=== PATIENT | female | born 1960 | race Caucasian/White ===

== ENCOUNTER 2019-11-21 10:52 | Inpatient (IN) | payer MEDICARE, OTHER ==
[2019-11-27 20:15] VITALS: BP 132/67
[2019-11-27] MEDS ORDERED: Magnesium Hydroxide (MOM) 30 mL UDC PO PRN (20:36)
[2019-11-28] MEDS ORDERED: OLANZapine 5 mg Oral Disintegrating Tab PO SCH (05:00)
[2019-11-28] MEDS ORDERED: INSULIN LISPRO 100 UNIT/ML VIAL SUBQ SCH (07:30)
--- NOTE | 2019-11-28 07:37 | Psychiatric Evaluation ---
DATE OF SERVICE: 11/28/2019 PSYCHIATRIC INITIAL EVALUATION AND MENTAL STATUS EXAMINATION AGE: 59. SEX: Female. PHYSICIAN: Dr. Aquino. CHIEF COMPLAINT: "I don't talk to any senior rd engineer right now." HISTORY OF PRESENT ILLNESS: The patient is a 59-year-old female who was admitted to the hospital from [facility] in the [facility] because the patient has been aggressive and has been hitting staff. The patient also has been verbally abusive and has not been able to follow any of staff directions. Upon arrival to the hospital, the patient has been extremely agitated and has been in angry and in irritable mood. The patient also has been restless and has been paranoid about the surrounding and has been yelling and screaming at staff and nurses in the unit. She also was angry and agitated with myself and she was yelling and screaming at me and thinking that I am a senior rd engineer and asked me to leave and that she does not want to talk to a senior rd engineer at this time in spite of multiple attempts to explain to her my role and that I am her psychiatrist. She also is having difficulty to follow any directions and she kept yelling and screaming. PAST PSYCHIATRIC HISTORY: The patient has history of schizoaffective disorder. The patient has been taking Zyprexa, but it seemed that it has not been helping the patient's agitation and has not been helping her irritability. PAST MEDICAL HISTORY: The patient has a history of type 2 diabetes mellitus as well as arthritis and has cellulitis of right lower limb and also has a muscle weakness. The patient also has history of alcohol abuse. ALLERGIES: No known allergies. SOCIAL HISTORY: The patient lives in [facility]. No known family or children or marriage. Unemployed. The patient was homeless prior to her admission to [facility]. Also no reports of abuse issues. ALLERGIES: No known allergies. LEGAL HISTORY: Nothing reported. EMPLOYMENT: Nothing reported. CHEMICAL DEPENDENCY HISTORY: The patient has history of alcohol abuse. It is not clear when was the last time she was drinking. MENTAL STATUS EXAMINATION: The patient appears much older than her stated age. Disheveled. Anxious. Restless. In irritable mood. Thought processes are circumstantial and with flight of ideas. The patient did not answer question regarding hallucinations or delusions, but actively responding to stimuli. Poor insight and she does not know why she is in the hospital. Poor judgment and she was refusing care and aggressive with the staff in the alf and also aggressive in the Geropsych Unit. The patient did not answer question regarding suicide or homicide. The patient is alert, but unable to assess her orientation or memory at this time because of her agitation and aggressive behavior and uncooperative to answer any of the questions. Poor judgment. Poor attention and concentration. She was not able to follow any of my directions when I asked her about the spelling a word or spelling of her last name. ASSESSMENT: PRIMARY DIAGNOSIS: Schizoaffective disorder, schizophrenic type, severe, with psychosis. MEDICAL DIAGNOSES: Diabetes mellitus. Arthritis. Right lower limb cellulitis. TREATMENT PLAN: We will continue to monitor the patient's behavior and condition closely. Also, we will discontinue Zyprexa and we will start the patient on Seroquel 100 mg 3 times a day. Also, we will monitor her behavior and work on behavioral modification. ESTIMATED LENGTH OF STAY: 5-7 days. PATIENT'S STRENGTHS AND WEAKNESSES: The patient seems to be in relatively fair health. Weaknesses are her poor judgment. AFTER DISCHARGE PLAN: The patient will return to [facility] unless placement will be indicated. Outpatient treatment and followup will continue as an outpatient. CRITERIA FOR DISCHARGE: The patient will have better impulse control and less agitated and stabilize psychotropic medications and establish outpatient treatment plans. JOB# [id number]
[2019-11-28] MEDS: Multivitamin Tab PO SCH (09:00)
[2019-11-28] MEDS: Enoxaparin 40 mg/0.4 mL 0.4mL Syr SUBQ SCH (10:00)
[2019-11-28] MEDS ORDERED: GLUCAGON HCl 1 MG KIT IM PRN (11:55)
--- NOTE | 2019-11-28 12:22 | History & Physical ---
ADMIT DATE: 11/28/19 CHIEF COMPLAINT: Redness and swelling. HISTORY OF PRESENT ILLNESS: The patient is an elderly patient who lives in [facility] who is transferred here for continuing management of treatment of cellulitis. The patient does not have any pain in her leg. The patient denies any chest pain or shortness of breath, nausea, vomiting, abdominal pain. PAST MEDICAL HISTORY: 1. Diabetes. 2. Schizoaffective disorder. 3. Schizophrenia. SURGICAL HISTORY: None. MEDICATIONS: List reviewed. ALLERGIES: None. SOCIAL HISTORY: Tobacco, IV drugs, ETOH negative. PHYSICAL EXAMINATION: VITAL SIGNS: Temperature is 97.7, pulse 80, respirations 18, blood pressure is 132/67. HEENT: Normocephalic, atraumatic head exam. NECK: Supple. CARDIOVASCULAR: Regular rate and rhythm. LUNGS: Clear. ABDOMEN: Soft, nontender. EXTREMITIES: No edema, cyanosis or clubbing. There is erythema of the leg consistent with cellulitis. ASSESSMENT AND PLAN: 1. Diabetic cellulitis. 2. Schizoaffective disorder. The patient has already received the antibiotics. We will continue to do daily wound checks, and we will monitor the blood sugar and blood pressure closely. JOB# [id number] FIDENCIO
[2019-11-28] MEDS: Venelex 60gm Tube TP SCH (13:30)
[2019-11-28] MEDS: INSULIN LISPRO SLIDING SCALE 100 UNITS/ML UNIT SUBQ SCH ×2 (16:24→20:52)
[2019-11-29] MEDS: INSULIN LISPRO SLIDING SCALE 100 UNITS/ML UNIT SUBQ SCH ×4 (06:30→21:17)
[2019-11-29] MEDS: Enoxaparin 40 mg/0.4 mL 0.4mL Syr SUBQ SCH (08:27)
[2019-11-29] MEDS: Multivitamin Tab PO SCH (08:28)
[2019-11-29] MEDS: Venelex 60gm Tube TP SCH (08:30)
[2019-11-29] MEDS: Hydrocodone/APAP 5mg/325mg Tab PO PRN ×2 (09:05→17:01)
--- NOTE | 2019-11-29 09:48 | Progress Notes ---
DATE: SUBJECTIVE: Chart was reviewed and the patient interviewed. Also discussed the patient's condition with the staff and reviewed records and labs. The patient continued to be anxious and slightly confused. The patient is still slightly confused and needs redirections. She is cooperative and compliant with taking her medications. No side effects of medications. ASSESSMENT: The patient is still anxious and is still in a depressed mood and is having episodes of agitation. TREATMENT PLAN: We will continue monitoring her behavior and her medications. Also, continue working on her impulse control and her agitation and we will continue to followup. ESTIMATED LENGTH OF STAY: 2-4 days. REASON FOR CONTINUED HOSPITAL STAY: The patient is still agitated and needs working on her impulse control. JOB# [id number]
--- NOTE | 2019-11-29 14:15 | Internal Medicine Prog Note ---
Internal Medicine Subjective - Subjective Service Date: 11/29/19 Patient seen and examined:: without staff Patient is:: awake, verbal Patient Complaints of:: sore throat Per staff patient has:: eating well Internal Medicine Objective - Results Recent Labs: Laboratory Last Values POC Glucose 86 MG/DL (70 - 105) 11/29/19 06:24 - Physical Exam Vitals and I&O: Vital Signs Temp 98.4 F 11/29/19 05:27 Pulse 62 11/29/19 05:27 Resp 20 11/29/19 05:27 BP 117/73 11/29/19 05:27 Pulse Ox 98 11/29/19 05:27 Intake & Output 11/28/19 11/29/19 11/29/19 18:59 06:59 18:59 Intake Total 1020 240 Balance 1020 240 Intake: Oral 1020 240 Other: # Voids 3 2 # Bowel Movements 1 0 Active Medications: Current Medications Hydrocodone Bitart/Acetaminophen ([place] 5mg/325mg) 1 tab PO Q6H PRN PRN Reason: SEVERE PAIN (7-10) Stop: 01/27/20 02:40 Last Admin: 11/29/19 09:05 Dose: 1 tab [place] Oil/Sudanese Balsam/Trypsin (Venelex) 1 appl TP Q24HR BUTCH Stop: 01/27/20 08:59 Last Admin: 11/29/19 08:30 Dose: 1 appl Dextrose (Glutose 40%) 18.75 gm PO PRN PRN PRN Reason: BS Below 70 if tolerate po Stop: 01/27/20 11:54 Enoxaparin Sodium (Lovenox) 40 mg SUBQ DAILY [facility] Stop: 01/27/20 08:59 Last Admin: 11/29/19 08:27 Dose: 40 mg Glucagon (Glucagen) 1 mg IM PRN PRN PRN Reason: BS Below 70 if not tolerate po Stop: 01/27/20 11:54 Insulin Human Lispro (Humalog Insulin Sliding Scale) 0 units SUBQ ACHS BUTCH; Protocol Stop: 01/27/20 16:29 Last Admin: 11/29/19 11:40 Dose: Not Given Lorazepam (Ativan) 0.5 mg PO Q4HR PRN; Protocol PRN Reason: Anxiety Stop: 12/27/19 20:35 Last Admin: 11/28/19 20:53 Dose: 0.5 mg Magnesium Hydroxide (Milk Of Magnesia) 30 ml PO HS PRN PRN Reason: Constipation Metformin HCl (Glucophage) 500 mg PO DAILY [facility] Stop: 01/27/20 08:59 Last Admin: 11/29/19 08:28 Dose: 500 mg Multivitamins/Vitamin C (Theragran) 1 tab PO DAILY BUTCH Stop: 01/27/20 08:59 Last Admin: 11/29/19 08:28 Dose: 1 tab Mupirocin (Bactroban Oint) 1 appl NS BID [facility] Stop: 12/04/19 09:01 Quetiapine Fumarate (Seroquel) 100 mg PO TID [facility]; Protocol Stop: 01/27/20 08:59 Last Admin: 11/29/19 08:28 Dose: 100 mg Zolpidem Tartrate (Ambien) 5 mg PO HS PRN PRN Reason: Insomnia Stop: 01/26/20 20:35 HEENT: NC/AT, EOMI Neck: Supple, No JVD Lungs: CTAB Cardiovascular: RRR, Normal S1, Normal S2 Abdomen: soft, non-tender Extremities: clear Internal Medicine Assmt/Plan - Assessment Assessment: 1. Cellutis 2. Acute psychosis 3. DM/HTN - Plan Plan: will montor wound
[2019-11-30] MEDS: INSULIN LISPRO SLIDING SCALE 100 UNITS/ML UNIT SUBQ SCH ×4 (06:32→21:12)
[2019-11-30] MEDS: Enoxaparin 40 mg/0.4 mL 0.4mL Syr SUBQ SCH (08:25)
[2019-11-30] MEDS: Multivitamin Tab PO SCH (08:25)
[2019-11-30] MEDS: Venelex 60gm Tube TP SCH (08:27)
[2019-11-30] MEDS: Hydrocodone/APAP 5mg/325mg Tab PO PRN (08:47)
[2019-11-30] MEDS ORDERED: Haloperidol Lactate 5 mg/mL 1mL Vial ONE (10:49)
[2019-11-30] MEDS: Haloperidol Lactate 5 mg/mL 1mL Vial IM ONE ×2 (11:11→11:13)
--- NOTE | 2019-11-30 13:18 | Internal Medicine Prog Note ---
Internal Medicine Subjective - Subjective Service Date: 11/30/19 Patient seen and examined:: without staff Patient is:: asleep, non-verbal, non-interactive, eyes closed Internal Medicine Objective - Results Recent Labs: Laboratory Last Values POC Glucose 143 MG/DL (70 - 105) H 11/29/19 21:14 - Physical Exam Vitals and I&O: Vital Signs Temp 97.4 F 11/30/19 05:45 Pulse 66 11/30/19 05:45 Resp 18 11/30/19 07:33 BP 126/68 11/30/19 05:45 Pulse Ox 99 11/30/19 05:45 Intake & Output 11/29/19 11/30/19 11/30/19 18:59 06:59 18:59 Intake Total 900 160 Balance 900 160 Intake: Oral 900 160 Other: # Voids 3 2 # Bowel Movements 1 1 Active Medications: Current Medications Hydrocodone Bitart/Acetaminophen ([place] 5mg/325mg) 1 tab PO Q6H PRN PRN Reason: SEVERE PAIN (7-10) Stop: 01/27/20 02:40 Last Admin: 11/30/19 08:47 Dose: 1 tab [place] Oil/Surinamese Balsam/Trypsin (Venelex) 1 appl TP Q24HR BUTCH Stop: 01/27/20 08:59 Last Admin: 11/30/19 08:27 Dose: 1 appl Dextrose (Glutose 40%) 18.75 gm PO PRN PRN PRN Reason: BS Below 70 if tolerate po Stop: 01/27/20 11:54 Enoxaparin Sodium (Lovenox) 40 mg SUBQ DAILY [facility] Stop: 01/27/20 08:59 Last Admin: 11/30/19 08:25 Dose: 40 mg Glucagon (Glucagen) 1 mg IM PRN PRN PRN Reason: BS Below 70 if not tolerate po Stop: 01/27/20 11:54 Insulin Human Lispro (Humalog Insulin Sliding Scale) 0 units SUBQ ACHS BUTCH; Protocol Stop: 01/27/20 16:29 Last Admin: 11/30/19 11:33 Dose: Not Given Lorazepam (Ativan) 0.5 mg PO Q4HR PRN; Protocol PRN Reason: Anxiety Stop: 12/27/19 20:35 Last Admin: 11/28/19 20:53 Dose: 0.5 mg Magnesium Hydroxide (Milk Of Magnesia) 30 ml PO HS PRN PRN Reason: Constipation Metformin HCl (Glucophage) 500 mg PO DAILY BUT[facility] Stop: 01/27/20 08:59 Last Admin: 11/30/19 08:25 Dose: 500 mg Multivitamins/Vitamin C (Theragran) 1 tab PO DAILY BUT[facility] Stop: 01/27/20 08:59 Last Admin: 11/30/19 08:25 Dose: 1 tab Mupirocin (Bactroban Oint) 1 appl NS BID BUTCH Stop: 12/04/19 09:01 Last Admin: 11/30/19 08:27 Dose: 1 appl Quetiapine Fumarate (Seroquel) 100 mg PO TID [facility]; Protocol Stop: 01/27/20 08:59 Last Admin: 11/30/19 08:25 Dose: 100 mg Zolpidem Tartrate (Ambien) 5 mg PO HS PRN PRN Reason: Insomnia Stop: 01/26/20 20:35 Last Admin: 11/29/19 21:17 Dose: 5 mg HEENT: NC/AT, EOMI Neck: Supple, No JVD Lungs: CTAB Cardiovascular: RRR, Normal S1, Normal S2 Abdomen: soft, non-tender Extremities: other (erythema over leg) Internal Medicine Assmt/Plan - Assessment Assessment: 1. Cellutis 2. Acute psychosis 3. DM/HTN - Plan Plan: will montor wound continue accu check of blood sugars wound care consult with homer hopefully wound will heal soon d/w r.n. patient is in isolation for aggressive behavior
--- NOTE | 2019-11-30 13:40 | General Progress Note ---
Subjective - Review of Systems Service Date: 11/30/19 Objective - Results Recent Labs: Laboratory Last Values POC Glucose 143 MG/DL (70 - 105) H 11/29/19 21:14 - Physical Exam Vitals and I&O: Vital Signs Temp 97.4 F 11/30/19 05:45 Pulse 66 11/30/19 05:45 Resp 18 11/30/19 07:33 BP 126/68 11/30/19 05:45 Pulse Ox 99 11/30/19 05:45 Intake & Output 11/29/19 11/30/19 11/30/19 18:59 06:59 18:59 Intake Total 900 160 Balance 900 160 Intake: Oral 900 160 Other: # Voids 3 2 # Bowel Movements 1 1 Active Medications: Current Medications Hydrocodone Bitart/Acetaminophen ([place] 5mg/325mg) 1 tab PO Q6H PRN PRN Reason: SEVERE PAIN (7-10) Stop: 01/27/20 02:40 Last Admin: 11/30/19 08:47 Dose: 1 tab [place] Oil/Irish Balsam/Trypsin (Venelex) 1 appl TP Q24HR BUT[facility] Stop: 01/27/20 08:59 Last Admin: 11/30/19 08:27 Dose: 1 appl Dextrose (Glutose 40%) 18.75 gm PO PRN PRN PRN Reason: BS Below 70 if tolerate po Stop: 01/27/20 11:54 Enoxaparin Sodium (Lovenox) 40 mg SUBQ DAILY BUT[facility] Stop: 01/27/20 08:59 Last Admin: 11/30/19 08:25 Dose: 40 mg Glucagon (Glucagen) 1 mg IM PRN PRN PRN Reason: BS Below 70 if not tolerate po Stop: 01/27/20 11:54 Insulin Human Lispro (Humalog Insulin Sliding Scale) 0 units SUBQ ACHS BUTCH; Protocol Stop: 01/27/20 16:29 Last Admin: 11/30/19 11:33 Dose: Not Given Lorazepam (Ativan) 0.5 mg PO Q4HR PRN; Protocol PRN Reason: Anxiety Stop: 12/27/19 20:35 Last Admin: 11/28/19 20:53 Dose: 0.5 mg Magnesium Hydroxide (Milk Of Magnesia) 30 ml PO HS PRN PRN Reason: Constipation Metformin HCl (Glucophage) 500 mg PO DAILY [facility] Stop: 01/27/20 08:59 Last Admin: 11/30/19 08:25 Dose: 500 mg Multivitamins/Vitamin C (Theragran) 1 tab PO DAILY [facility] Stop: 01/27/20 08:59 Last Admin: 11/30/19 08:25 Dose: 1 tab Mupirocin (Bactroban Oint) 1 appl NS BID [facility] Stop: 12/04/19 09:01 Last Admin: 11/30/19 08:27 Dose: 1 appl Quetiapine Fumarate (Seroquel) 100 mg PO TID [facility]; Protocol Stop: 01/27/20 08:59 Last Admin: 11/30/19 08:25 Dose: 100 mg Zolpidem Tartrate (Ambien) 5 mg PO HS PRN PRN Reason: Insomnia Stop: 01/26/20 20:35 Last Admin: 11/29/19 21:17 Dose: 5 mg Assessment/Plan - Assessment Assessment: 1. Cellutis 2. Acute psychosis 3. DM/HTN - Plan Plan: will montor wound
--- NOTE | 2019-11-30 22:56 | Progress Notes ---
DATE: 11/30/2019 SUBJECTIVE: The patient was interviewed. Case was discussed with staff, and chart and records were reviewed. Per the staff, the patient has been in the room most of the day, talking and cursing out loud. The patient has been aggressively agitated, cursing and throwing things and yelling. The patient was earlier agitated this morning and required Haldol 5 mg, Ativan 1 mg, Benadryl 25 mg IM due to emergent agitation and safety reasons. MENTAL STATUS EXAMINATION: The patient is an elderly female, disorganized, uncooperative with poor insight, judgment and impulse control. Otherwise, unable to assess due to poor cooperation. ASSESSMENT: The patient is a 59-year-old female, admitted to [facility] originally on 11/27/2019 from [facility] due to becoming aggressive and hitting staff. The patient at this time continues with aggressive behavior, continues to require emergent medications via IM route due to aggressive and threatening behavior and poor boundaries and poor safety. PLAN: We will continue the patient on acute hospitalization. We will continue medications as prescribed. We will encourage the patient to verbalize the need, encourage the patient to participate in group and milieu therapy. JOB# [id number]
[2019-12-01] MEDS: INSULIN LISPRO SLIDING SCALE 100 UNITS/ML UNIT SUBQ SCH ×4 (07:12→21:13)
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
[2019-12-01] MEDS: Enoxaparin 40 mg/0.4 mL 0.4mL Syr SUBQ SCH (08:35)
[2019-12-01] MEDS: Venelex 60gm Tube TP SCH (08:36)
[2019-12-01] MEDS: Multivitamin Tab PO SCH (08:36)
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
[2019-12-02] MEDS: INSULIN LISPRO SLIDING SCALE 100 UNITS/ML UNIT SUBQ SCH ×4 (06:45→20:44)
[2019-12-02] MEDS: Enoxaparin 40 mg/0.4 mL 0.4mL Syr SUBQ SCH (08:33)
[2019-12-02] MEDS: Hydrocodone/APAP 5mg/325mg Tab PO PRN (08:33)
[2019-12-02] MEDS: Multivitamin Tab PO SCH (08:33)
[2019-12-02] MEDS: Venelex 60gm Tube TP SCH (08:34)
--- NOTE | 2019-12-02 22:40 | Progress Notes ---
DATE: 12/02/2019 SUBJECTIVE: Chart was reviewed and the patient interviewed. Also discussed the patient's condition with the staff and reviewed records and labs. The patient seems to be slightly calmer than before. The patient also is easier to redirect. The patient also is trying to interact more with peers and others. She denies any suicide or homicide. She is also compliant with taking her medications with no side effects of medications. Hemoglobin A1c came back to be 6.2. Otherwise, no major abnormal labs. Also, vital signs are stable. MENTAL STATUS EXAMINATION: Unkempt. Anxious. Cooperative. Thought processes are disorganized. ASSESSMENT: The patient is still anxious, but no major behavioral problems. TREATMENT PLAN: Continue to monitor behavior and condition closely. Also, continue adjusting psychotropic medications and work on behavioral modification. JOB# [id number]
[2019-12-03] MEDS: INSULIN LISPRO SLIDING SCALE 100 UNITS/ML UNIT SUBQ SCH ×2 (06:50→11:39)
[2019-12-03] MEDS: Multivitamin Tab PO SCH (08:43)
[2019-12-03] MEDS: Enoxaparin 40 mg/0.4 mL 0.4mL Syr SUBQ SCH (08:46)
[2019-12-03] MEDS: Venelex 60gm Tube TP SCH (10:00)
--- NOTE | 2019-12-03 22:51 | Discharge Summary ---
DATE OF DISCHARGE: 12/03/2019 AGE: 59. SEX: Female. PHYSICIAN: Dr. Aquino. FINAL DIAGNOSES: PRIMARY DIAGNOSIS: Schizoaffective disorder, schizophrenic type, severe, with psychotic features. MEDICAL DIAGNOSES: Diabetes mellitus. Right lower limb cellulitis. Arthritis. REASON FOR HOSPITALIZATION: The patient was admitted to the hospital from [facility] because of agitation and aggressive behavior and she was hitting staff and was verbally abusive to peers and staff and not able to follow directions. HOSPITAL COURSE: The patient continued to be anxious and in irritable mood. The patient also was severely agitated. The patient was started on Seroquel and the dose adjusted to 100 mg 3 times a day. Gradually, the patient's affect was brighter. The patient was calmer. The patient was able to follow directions. The patient was discharged from the hospital and returning back to [facility]. PHYSICAL EXAMINATION: Showed no major medical problems. DISCHARGE ACTIVITY: As tolerated. DISCHARGE DIET: Regular. DISCHARGE PSYCHOTROPIC MEDICATIONS: Seroquel 100 mg 3 times a day. EXPECTED OUTCOME AFTER DISCHARGE: Fair if the patient continued to take her psychotropic medications and follow up with discharge plans. JOB# [id number]
== END 2019-12-03 15:19 | DRG 885 ==
LOC: GERO 11-27 19:37
PROVIDERS: ADMIT Psychiatry & Neurology Psychiatry; ATTEND Psychiatry & Neurology Psychiatry
DX: F25.9 Schizoaffective disorder, unspecified (principal); L03.115 Cellulitis of right lower limb; M19.90 Unspecified osteoarthritis, unspecified site; E11.622 Type 2 diabetes mellitus with other skin ulcer; F41.9 Anxiety disorder, unspecified; I10 Essential (primary) hypertension; Z56.0 Unemployment, unspecified; Z79.899 Other long term (current) drug therapy; Z79.4 Long term (current) use of insulin
CPT/HCPCS: 82948-90; 83036-90; G0410; J1200; J1630; J1650; J2060; Z7610

== ENCOUNTER 2019-12-20 16:59 | Inpatient (IN) | payer MEDICARE, OTHER ==
[2019-12-20 22:34] VITALS: BP 150/78
[2019-12-20] MEDS ORDERED: Magnesium Hydroxide (MOM) 30 mL UDC PO PRN (22:43)
[2019-12-21] MEDS: Multivitamin Tab PO SCH (10:11)
--- NOTE | 2019-12-21 16:01 | History & Physical ---
ADMIT DATE: 12/20/2019 CHIEF COMPLAINT: Schizoaffective disorder. HOSPITAL COURSE: The patient is a 59-year-old white female, who has been transferred from [facility]. The patient initially was admitted on [facility] on 12/11/2019 with diagnoses of right leg infected wound, possible sepsis, depression, and anxiety. The patient had consultations obtained from Infectious Disease, Wound Care, and Psychiatry. Per evaluation from Wound Care, the patient was found to have an ulceration on the right leg and recommendation was Silvadene cream and wound VAC. Per evaluation by Psychiatry, the patient was found to have schizoaffective disorder, manic episode, severe, with psychotic features. Per Infectious Disease, the patient was placed on empiric coverage with IV vancomycin and IV Ancef and the patient's wound culture showed Morganella and MSSA. The patient was recommended to continue with antibiotics for a total of 2 weeks. PAST MEDICAL HISTORY: 1. Right leg cellulitis secondary to Morganella and MSSA. 2. Right lower extremity nonhealing ulcer. 3. Schizoaffective disorder, manic episode, severe, with psychotic features. 4. Urinary tract infection. PAST SURGICAL HISTORY: Negative. ALLERGIES: No known allergies. MEDICATIONS: See medication reconciliation form. SOCIAL HISTORY: Positive tobacco use, positive alcohol use. Denies IV drug use. REVIEW OF SYSTEMS: See history of present illness. PHYSICAL EXAMINATION: VITAL SIGNS: On admission, temperature 97.4, pulse 89, blood pressure 115/70, respiratory rate 18, pulse ox 100% on room air. HEENT: Normocephalic, atraumatic. Extraocular movements intact. Oropharynx is clear. Poor dentition. CARDIOVASCULAR: S1, S2. No murmurs, rubs, clicks or gallops. RESPIRATORY: Clear. No wheezes or rhonchi. GASTROINTESTINAL: Soft, nontender, nondistended. Bowel sounds present. GENITOURINARY: No CVA tenderness. No suprapubic tenderness. BACK: No midline tenderness. EXTREMITIES: Equal pulses bilaterally. No cyanosis, clubbing or edema. SKIN: There is a right lower extremity wound. There is also a right lower extremity nonhealing ulcer. NEUROLOGIC: Cranial nerves 2-12 intact. Extraocular movements are intact. Sensation is intact. Neurovascular is intact. Muscles grossly normal. PSYCHIATRIC: Unable to assess. LABORATORY DATA: No labs on admission. IMPRESSION: 1. Schizoaffective disorder, manic episode, severe, with psychotic features. 2. Right leg cellulitis secondary to Morganella and MSSA. 3. Right lower extremity nonhealing ulcer. 3. Poor dentition. PLAN: The patient will be admitted to inpatient psych unit at [place]. We will ____. Further recommendations per Psychiatry. JOB# [id number]
--- NOTE | 2019-12-21 16:34 | Psychiatric Evaluation ---
DATE OF SERVICE: 12/21/2019 HISTORY OF PRESENT ILLNESS: A 59-year-old female coming in from [facility], history of schizoaffective and bipolar disorder, medically cleared at [facility], noted to be combative per the hold; chasing, hitting and screaming at staff; cursing with racial slurs towards staff. On [id number], the patient is AO to name. She knows she is in the hospital. She states she is here because she "fell." She believes she is here because of her leg, points to her leg. She knows the year, the month, not the date, not the day of the week. Poor historian, mostly fixated on her leg. Denies depression. Denies anxiety. PAST PSYCHIATRIC HISTORY: Noted per documentation, schizoaffective, possibly bipolar. FAMILY HISTORY: Unclear. SOCIAL HISTORY: Coming from a [place], born in [place], stating that she was raised [employer], , no kids. MENTAL STATUS EXAMINATION: Stated age. Poor dentition, fair eye contact, ruminative, tangential, just wants to talk about her leg. No overt SI or HI, unclear psychotic symptoms. Mumbles to self. Poor insight, poor judgment, poor impulse control. DIAGNOSES: Schizoaffective disorder versus bipolar per history. MEDICAL: Please see full H and P. ESTIMATED LENGTH OF STAY: 7-10 days. ASSESSMENT: The patient requiring hospitalization, agitated, aggressive, combative. TREATMENT PLAN: Includes group as well as milieu therapy. CONDITIONS FOR DISCHARGE: Improved mood, improved affect, adjustment to medications, calmer demeanor. JOB# [id number]
[2019-12-22] MEDS: Multivitamin Tab PO SCH (08:54)
--- NOTE | 2019-12-22 11:59 | Progress Notes ---
DATE: 12/22/2019 SUBJECTIVE: A 59-year-old female coming to the hospital from [facility] with history of schizoaffective disorder, and also bipolar disorder. Medically cleared at [facility]; combative per the hold; hitting and screaming at staff; cursing with racial slurs towards staff. The patient is still noting that she is here because she fell rambling. It is hard to really follow her thought processes. She is awake this morning. She states she slept fairly well, but was disrupted by staff. She really does not know why she is in the hospital. She is very anxious and restless on exam. Staff noting she slept comfortably, able to make her basic needs known, and able to converse in conversation; fast, pressured speech; easily agitated at times; observed mumbling to self, disheveled, refusing to shower, does not want to closely watched. Medications were reviewed. Labs were reviewed. Vitals were reviewed, blood pressure 115/70, pulse of 89. ASSESSMENT: A 59-year-old female with ongoing behavioral disturbances with concerns for ability to be cared for at a lower level of care. Concerns for underlying and ongoing psychosis. PLAN: We will continue to monitor. Continue dosing of Seroquel. Recommend dose titration. The patient to follow up with Dr. Aquino in the morning. JOB# [id number]
[2019-12-23] MEDS: Multivitamin Tab PO SCH (08:10)
--- NOTE | 2019-12-23 10:38 | Progress Notes ---
DATE: SUBJECTIVE: Chart reviewed and the patient interviewed. Also discussed the patient's condition with the staff and reviewed records and labs. The patient remains confused and is still easily irritable and easily agitated. The patient also is still suspicious and is still paranoid. The patient also has mood swings and she still has had problems with interacting with others and she is in angry mood. Otherwise, the patient is compliant with taking her medications and the patient denies any side effects of medications. ASSESSMENT: The patient is still agitated and is still confused and in irritable mood. TREATMENT PLAN: We will continue to monitor behavior and condition closely. Also, we will continue adjusting psychotropic medications. Also, we will work on her irritability and agitation closely. [facility]# [id number]
--- NOTE | 2019-12-23 12:47 | Internal Medicine Prog Note ---
Internal Medicine Subjective - Subjective Service Date: 12/23/19 Patient seen and examined:: without staff Patient is:: awake, interactive Per staff patient has:: no adverse event, no episodes of fall Internal Medicine Objective - Results Recent Labs: Laboratory Last Values POC Glucose 97 MG/DL (70 - 105) 12/20/19 19:25 - Physical Exam Vitals and I&O: Vital Signs Temp 97.6 F 12/23/19 06:42 Pulse 67 12/23/19 06:42 Resp 18 12/23/19 08:00 BP 110/61 12/23/19 06:42 Pulse Ox 97 12/23/19 06:42 Intake & Output 12/22/19 12/23/19 12/23/19 18:59 06:59 18:59 Intake Total 900 360 Balance 900 360 Intake: Oral 900 360 Other: # Voids 3 1 # Bowel Movements 1 Active Medications: Current Medications Acetaminophen (Tylenol) 650 mg PO Q4H PRN PRN Reason: Pain (Mild 1-3) Stop: 02/18/20 22:33 Cholecalciferol (Vitamin D3) 2,000 iu PO DAILY BUTCH Stop: 02/19/20 08:59 Last Admin: 12/23/19 08:09 Dose: 2,000 iu Doxycycline Hyclate (Vibramycin) 100 mg PO BID BUTCH Stop: 02/19/20 08:59 Last Admin: 12/23/19 08:10 Dose: 100 mg Lorazepam (Ativan) 0.5 mg PO Q4HR PRN; Protocol PRN Reason: Agitation Stop: 01/19/20 22:33 Last Admin: 12/22/19 22:05 Dose: 0.5 mg Magnesium Hydroxide (Milk Of Magnesia) 30 ml PO HS PRN PRN Reason: Constipation Stop: 02/18/20 22:42 Multivitamins/Vitamin C (Theragran) 1 tab PO DAILY BUTCH Stop: 02/19/20 08:59 Last Admin: 12/23/19 08:10 Dose: 1 tab Quetiapine Fumarate (Seroquel) 200 mg PO HS BUTCH; Protocol Stop: 02/19/20 20:59 Last Admin: 12/22/19 21:03 Dose: 200 mg Quetiapine Fumarate (Seroquel) 100 mg PO BID BUTCH; Protocol Stop: 02/19/20 08:59 Last Admin: 12/23/19 08:10 Dose: 100 mg Temazepam (Restoril) 30 mg PO HS PRN; Protocol PRN Reason: Insomnia Stop: 02/18/20 23:57 Last Admin: 12/21/19 21:23 Dose: 30 mg Tramadol HCl (Ultram) 50 mg PO Q6HR PRN PRN Reason: Pain (Moderate 4-6) Stop: 02/18/20 23:58 Trazodone HCl (Desyrel) 50 mg PO HS BUTCH; Protocol Stop: 02/19/20 20:59 Last Admin: 12/22/19 21:03 Dose: 50 mg Valproate Sodium (Depakene) 500 mg PO BID BUTCH; Protocol Stop: 02/19/20 08:59 Last Admin: 12/23/19 08:09 Dose: 500 mg Zinc Sulfate (Zinc Sulfate) 220 mg PO BID BUTCH Stop: 02/19/20 08:59 Last Admin: 12/23/19 08:09 Dose: 220 mg General: lethargic HEENT: NC/AT Neck: Supple Lungs: CTAB Cardiovascular: RRR, Normal S1, Normal S2 Abdomen: soft, non-tender Extremities: clear Internal Medicine Assmt/Plan - Assessment Assessment: 1. Right leg cellulitis 2. schizohaffective disorder 3. s/p UTI - Plan Plan: doxycycline 100 mg po bid continue monitoring of leg
[2019-12-24] MEDS: Venelex 60gm Tube TP SCH (08:27)
[2019-12-24] MEDS: Multivitamin Tab PO SCH (08:28)
--- NOTE | 2019-12-24 16:05 | Progress Notes ---
DATE: SUBJECTIVE: Chart reviewed and the patient interviewed. Also, discussed the patient's condition with the staff and I reviewed records and labs. The patient is still having severe mood swings and at the moment, she is calm and cooperative and another she is aggressive and agitated with difficulty following directions. The patient also is still in angry and in irritable mood. She also had difficulty sleeping at night. Otherwise, the patient is compliant with taking her medications with no side effects of medications. ASSESSMENT: The patient is still agitated and in irritable mood and needs ____. PLAN: ____ working on her irritability and agitation. Also, we will increase Seroquel to 125 mg twice a day and 225 mg at bedtime. Also, we will increase trazodone to 75 mg at bedtime. Also, we will get Depakote blood level and continue to monitor her condition closely. MENTAL STATUS EXAMINATION: Anxious. Irritable mood. Unable to answer most of my questions coherently and easily irritable and easily agitated. ESTIMATED LENGTH OF STAY: 2-4 days. REASON FOR CONTINUED HOSPITAL STAY: The patient is still agitated and in irritable mood and still needs close monitoring. JOB# [id number]
[2019-12-25] MEDS: Multivitamin Tab PO SCH (08:21)
[2019-12-25] MEDS: Venelex 60gm Tube TP SCH (08:23)
--- NOTE | 2019-12-25 14:29 | Internal Medicine Prog Note ---
Internal Medicine Subjective - Subjective Service Date: 12/25/19 Patient seen and examined:: without staff Patient is:: awake, interactive Per staff patient has:: no adverse event, no episodes of fall Internal Medicine Objective - Results Recent Labs: Laboratory Last Values POC Glucose 97 MG/DL (70 - 105) 12/20/19 19:25 - Physical Exam Vitals and I&O: Vital Signs Temp 98.2 F 12/25/19 05:44 Pulse 74 12/25/19 05:44 Resp 20 12/25/19 08:00 BP 114/70 12/25/19 05:44 Pulse Ox 99 12/25/19 05:44 Intake & Output 12/24/19 12/25/19 12/25/19 18:59 06:59 18:59 Intake Total 1200 240 350 Balance 1200 240 350 Intake: Oral 1200 240 350 Other: # Voids 4 2 # Bowel Movements 1 Stool Characteristics Soft Brown Active Medications: Current Medications Acetaminophen (Tylenol) 650 mg PO Q4H PRN PRN Reason: Pain (Mild 1-3) Stop: 02/18/20 22:33 [place] Oil/Maldivian Balsam/Trypsin (Venelex) 1 appl TP DAILY [facility] Stop: 02/22/20 08:59 Last Admin: 12/25/19 08:23 Dose: 1 appl Cholecalciferol (Vitamin D3) 2,000 iu PO DAILY BUTCH Stop: 02/19/20 08:59 Last Admin: 12/25/19 08:20 Dose: 2,000 iu Doxycycline Hyclate (Vibramycin) 100 mg PO BID BUTCH Stop: 02/19/20 08:59 Last Admin: 12/25/19 08:20 Dose: 100 mg Lorazepam (Ativan) 0.5 mg PO Q4HR PRN; Protocol PRN Reason: Agitation Stop: 01/19/20 22:33 Last Admin: 12/24/19 23:01 Dose: 0.5 mg Magnesium Hydroxide (Milk Of Magnesia) 30 ml PO HS PRN PRN Reason: Constipation Stop: 02/18/20 22:42 Multivitamins/Vitamin C (Theragran) 1 tab PO DAILY BUTCH Stop: 02/19/20 08:59 Last Admin: 12/25/19 08:21 Dose: 1 tab Quetiapine Fumarate 100 mg/ (Quetiapine Fumarate 50 mg) 150 mg PO BID BUTCH Stop: 02/23/20 09:59 Last Admin: 12/25/19 10:21 Dose: 150 mg Quetiapine Fumarate 200 mg/ (Quetiapine Fumarate 50 mg) 250 mg PO HS BUTCH Stop: 02/23/20 20:59 Temazepam (Restoril) 30 mg PO HS PRN; Protocol PRN Reason: Insomnia Stop: 02/18/20 23:57 Last Admin: 12/21/19 21:23 Dose: 30 mg Tramadol HCl (Ultram) 50 mg PO Q6HR PRN PRN Reason: Pain (Moderate 4-6) Stop: 02/18/20 23:58 Trazodone HCl (Desyrel) 75 mg PO HS BUTCH; Protocol Stop: 02/22/20 20:59 Last Admin: 12/24/19 20:52 Dose: 75 mg Valproate Sodium (Depakene) 500 mg PO BID BUTCH; Protocol Stop: 02/19/20 08:59 Last Admin: 12/25/19 08:22 Dose: 500 mg Zinc Sulfate (Zinc Sulfate) 220 mg PO BID [facility] Stop: 02/19/20 08:59 Last Admin: 12/25/19 08:22 Dose: 220 mg General: lethargic HEENT: NC/AT Neck: Supple Lungs: CTAB Cardiovascular: RRR, Normal S1, Normal S2 Abdomen: soft, non-tender Extremities: clear Internal Medicine Assmt/Plan - Assessment Assessment: 1. Right leg cellulitis 2. schizohaffective disorder 3. s/p UTI - Plan Plan: doxycycline 100 mg po bid continue monitoring of leg d/w r.n. Nutritional Asmnt/Malnutr-PDOC - Dietary Evaluation Malnutrition Findings (Please click <Entered> for more info): Nutritional Asmnt/Malnutrition Start: 12/23/19 12: 43 Text: Status: Complete Freq: Protocol: Document 12/23/19 12:44 MONICA (Rec: 12/23/19 12:49 MONICA [email or web address]) Nutritional Asmnt/Malnutrition Patient General Information Nutritional Screening Low Risk Diagnosis Psychosis Pertinent Medical Hx/Surgical Hx RT leg cellulitis secondary to Morganella and MSSA, RT lower extremity with non-healing ulcer, schizoaffective disorder, manic episode, severe, with psychotic features, UTI Subjective Information Pt is a 54-year-old male admitted on 12/19 d/t depression and anxiety. Pt is eating an estimated 90% of meals Per Meal/Nutrition Activity Record. Dietary is currently providing an estimated 3000 kcals and 140 gm Pro, per Pt PO intake this is providing an estimated 2700 kcals and 125gm Pro to meet 100+% kcal and 100+% Pro needs . As pt is eating 75-100% meals since admit date, discontinuing Glucerna TID which was ordered by nurse over the weekend d/t pt having it while being medically cleared at [facility]. Pt is adequately meeting estimated nutritional needs to support wound healing, adding Dave BID instead to provide amino acids and vitamins without extra calories. Anthropometrics HT: 54 WT: 170 LB (77.27 kg) ABW: 132 LB (60 kg) BMI: 29.20 (Overweight) GI/ Skin Integrity GI: WNL, Soft BM: 12/21 x1 I/O: 1260/Not Noted Skin: Venous Insufficiency Ulcer on Rt umanzor Wan: 22 Diet Order: Mechanical Soft, chopped Estimated Energy Needs: (Wound Healing, ABW) 9661-2903 kcals (25-30 kcals/ kg) 60-70g Pro (1.0-1.2 g/kg) 7736-0026 ml (25-30 ml/kg) Current Diet Order/ Nutrition Support Mechanical Soft, chopped Pertinent Medications Vitamin D3, MOM (PRN), Theragran, Zinc Sulfate Pertinent Labs 12/19: POC Glucose: 97 12/10: BUN/Cr 22/0.72, GFR 88, Glucose 103 Nutritional Hx/Data Height 1.63 m Height (Calculated Centimeters) 162.6 Current Weight (lbs) 77.111 kg Weight (Calculated Kilograms) 77.1 Weight (Calculated Grams) 75572.7 [place] Body Weight 120 LB (54.55 kg) % [place] Body Weight 142 Body Mass Index (BMI) 29.2 Weight Status Overweight GI Symptoms Last BM 12/21 x1 Skin Integrity/Comment: Skin: Venous Insufficiency Ulcer on Rt umanzor Wan: 22 Pt is adequately meeting estimated nutritional needs to support wound healing, adding Dave BID instead to provide amino acids and vitamins without extra calories. Estimated Nutritional Goals BEE in Kcals: Adj wt of IBW Calories/Kcals/Kg 25-30 Kcals Calculated 8331-1053 Protein: Adj wt of IBW Protein g/k.0-1.2 Protein Calculated 60-70 Fluid: ml 1811-1089 ml (25-30 ml/kg) Nutritional Problem 1. Problem Problem Increased vitamin and mineral needs Etiology r/t wound healing Signs/Symptoms: aeb venous Insufficiency Ulcer on Rt umanzor. Malnutrition Related to Morbid Obesity Malnutrition related to morbid obesity No Intervention/Recommendation Comments 1.Continue Mechanical Soft, chopped diet as tolerated. 2.Add Dave BID (completed). Expected Outcomes/Goals Expected Outcomes/Goals 1. PO intake to continue to meet >75% of estimated nutritional needs. 2. Monitor PO intake, wt, nutrition related labs, and skin integrity to trend WNL. 3. F/U as low risk in 7-10 days, 12/29-01/01.
--- NOTE | 2019-12-25 21:04 | Progress Notes ---
DATE: 12/25/2019 SUBJECTIVE: Chart reviewed and the patient interviewed. Also discussed the patient's condition with the staff and reviewed records and labs. The patient is still in irritable mood and she is still having severe mood swings. The patient also is easily agitated and easily irritable. She also still has difficulty following staff directions and she is still having episodes of yelling and screaming. The patient although slept slightly better last night, she still has difficulty sleeping all night. She also is still waking up and causing problems to her roommate and other patients on the unit. She still needs lots of redirection and still difficult to redirect her. Gait is steady. Vital signs are stable. No new labs available for review. MENTAL STATUS EXAMINATION: Anxious. Irritable mood. Preoccupied. Suspicious and paranoid. TREATMENT PLAN: Continue monitoring behavior and condition closely. Also, we will increase Seroquel to 150 mg twice a day and 250 mg at bedtime and we will continue to follow up closely. ESTIMATED LENGTH OF STAY: 1-3 days. REASON FOR CONTINUED HOSPITAL STAY: The patient is still agitated and need to monitor her behavior closely and also needs adjustment to her medications. JOB# [id number]
[2019-12-26] MEDS: Venelex 60gm Tube TP SCH (09:01)
[2019-12-26] MEDS: Multivitamin Tab PO SCH (09:03)
--- NOTE | 2019-12-26 15:52 | Internal Medicine Prog Note ---
Internal Medicine Subjective - Subjective Service Date: 12/26/19 Patient seen and examined:: without staff Patient is:: awake, interactive Patient Complaints of:: congestion Per staff patient has:: no adverse event, no episodes of fall Internal Medicine Objective - Results Recent Labs: Laboratory Last Values POC Glucose 97 MG/DL (70 - 105) 12/20/19 19:25 - Physical Exam Vitals and I&O: Vital Signs Temp 99.0 F 12/26/19 14:00 Pulse 89 12/26/19 14:00 Resp 20 12/26/19 14:00 BP 147/81 12/26/19 14:00 Pulse Ox 95 12/26/19 14:00 Intake & Output 12/25/19 12/26/19 12/26/19 18:59 06:59 18:59 Intake Total 1150 120 Balance 1150 120 Intake: Oral 1150 120 Other: # Voids 2 1 # Bowel Movements 0 Stool Characteristics Soft Soft Brown Brown Active Medications: Current Medications Acetaminophen (Tylenol) 650 mg PO Q4H PRN PRN Reason: Pain (Mild 1-3) Stop: 02/18/20 22:33 [place] Oil/[place] Balsam/Trypsin (Venelex) 1 appl TP DAILY [facility] Stop: 02/22/20 08:59 Last Admin: 12/26/19 09:01 Dose: 1 appl Cholecalciferol (Vitamin D3) 2,000 iu PO DAILY [facility] Stop: 02/19/20 08:59 Last Admin: 12/26/19 09:02 Dose: 2,000 iu Doxycycline Hyclate (Vibramycin) 100 mg PO BID [facility] Stop: 02/19/20 08:59 Last Admin: 12/26/19 09:02 Dose: 100 mg Lorazepam (Ativan) 0.5 mg PO Q4HR PRN; Protocol PRN Reason: Agitation Stop: 01/19/20 22:33 Last Admin: 12/26/19 12:28 Dose: 0.5 mg Magnesium Hydroxide (Milk Of Magnesia) 30 ml PO HS PRN PRN Reason: Constipation Stop: 02/18/20 22:42 Multivitamins/Vitamin C (Theragran) 1 tab PO DAILY [facility] Stop: 02/19/20 08:59 Last Admin: 12/26/19 09:03 Dose: 1 tab Quetiapine Fumarate 100 mg/ (Quetiapine Fumarate 50 mg) 150 mg PO BID [facility] Stop: 02/23/20 09:59 Last Admin: 12/26/19 09:03 Dose: 150 mg Quetiapine Fumarate 200 mg/ (Quetiapine Fumarate 50 mg) 250 mg PO HS [facility] Stop: 02/23/20 20:59 Last Admin: 12/25/19 21:21 Dose: 250 mg Temazepam (Restoril) 30 mg PO HS PRN; Protocol PRN Reason: Insomnia Stop: 02/18/20 23:57 Last Admin: 12/21/19 21:23 Dose: 30 mg Tramadol HCl (Ultram) 50 mg PO Q6HR PRN PRN Reason: Pain (Moderate 4-6) Stop: 02/18/20 23:58 Trazodone HCl (Desyrel) 75 mg PO HS [facility]; Protocol Stop: 02/22/20 20:59 Last Admin: 12/25/19 21:20 Dose: 75 mg Valproate Sodium (Depakene) 500 mg PO BID [facility]; Protocol Stop: 02/19/20 08:59 Last Admin: 12/26/19 09:03 Dose: 500 mg Zinc Sulfate (Zinc Sulfate) 220 mg PO BID [facility] Stop: 02/19/20 08:59 Last Admin: 12/26/19 09:03 Dose: 220 mg General: lethargic HEENT: NC/AT Neck: Supple Lungs: CTAB Cardiovascular: RRR, Normal S1, Normal S2 Abdomen: soft, non-tender Extremities: clear Internal Medicine Assmt/Plan - Assessment Assessment: 1. Right leg cellulitis--slowly improving 2. schizohaffective disorder d/w r.n. - Plan Plan: doxycycline 100 mg po bid continue monitoring of leg d/w r.n. Nutritional Asmnt/Malnutr-PDOC - Dietary Evaluation Malnutrition Findings (Please click <Entered> for more info): Nutritional Asmnt/Malnutrition Start: 12/23/19 12: 43 Text: Status: Complete Freq: Protocol: Document 12/23/19 12:44 MONICA (Rec: 12/23/19 12:49 MONICA [email or web address]) Nutritional Asmnt/Malnutrition Patient General Information Nutritional Screening Low Risk Diagnosis Psychosis Pertinent Medical Hx/Surgical Hx RT leg cellulitis secondary to Morganella and MSSA, RT lower extremity with non-healing ulcer, schizoaffective disorder, manic episode, severe, with psychotic features, UTI Subjective Information Pt is a 54-year-old male admitted on 12/19 d/t depression and anxiety. Pt is eating an estimated 90% of meals Per Meal/Nutrition Activity Record. Dietary is currently providing an estimated 3000 kcals and 140 gm Pro, per Pt PO intake this is providing an estimated 2700 kcals and 125gm Pro to meet 100+% kcal and 100+% Pro needs . As pt is eating 75-100% meals since admit date, discontinuing Glucerna TID which was ordered by nurse over the weekend d/t pt having it while being medically cleared at [facility]. Pt is adequately meeting estimated nutritional needs to support wound healing, adding Dave BID instead to provide amino acids and vitamins without extra calories. Anthropometrics HT: 54 WT: 170 LB (77.27 kg) ABW: 132 LB (60 kg) BMI: 29.20 (Overweight) GI/ Skin Integrity GI: WNL, Soft BM: 12/21 x1 I/O: 1260/Not Noted Skin: Venous Insufficiency Ulcer on Rt umanzor Wan: 22 Diet Order: Mechanical Soft, chopped Estimated Energy Needs: (Wound Healing, ABW) 5774-3594 kcals (25-30 kcals/ kg) 60-70g Pro (1.0-1.2 g/kg) 1625-0342 ml (25-30 ml/kg) Current Diet Order/ Nutrition Support Mechanical Soft, chopped Pertinent Medications Vitamin D3, MOM (PRN), Theragran, Zinc Sulfate Pertinent Labs 12/19: POC Glucose: 97 12/10: BUN/Cr 22/0.72, GFR 88, Glucose 103 Nutritional Hx/Data Height 1.63 m Height (Calculated Centimeters) 162.6 Current Weight (lbs) 77.111 kg Weight (Calculated Kilograms) 77.1 Weight (Calculated Grams) 58733.7 [place] Body Weight 120 LB (54.55 kg) % [place] Body Weight 142 Body Mass Index (BMI) 29.2 Weight Status Overweight GI Symptoms Last BM 12/21 x1 Skin Integrity/Comment: Skin: Venous Insufficiency Ulcer on Rt umanzor Wan: 22 Pt is adequately meeting estimated nutritional needs to support wound healing, adding Dave BID instead to provide amino acids and vitamins without extra calories. Estimated Nutritional Goals BEE in Kcals: Adj wt of IBW Calories/Kcals/Kg 25-30 Kcals Calculated 8247-0002 Protein: Adj wt of IBW Protein g/k.0-1.2 Protein Calculated 60-70 Fluid: ml 2211-1220 ml (25-30 ml/kg) Nutritional Problem 1. Problem Problem Increased vitamin and mineral needs Etiology r/t wound healing Signs/Symptoms: aeb venous Insufficiency Ulcer on Rt umanzor. Malnutrition Related to Morbid Obesity Malnutrition related to morbid obesity No Intervention/Recommendation Comments 1.Continue Mechanical Soft, chopped diet as tolerated. 2.Add Dave BID (completed). Expected Outcomes/Goals Expected Outcomes/Goals 1. PO intake to continue to meet >75% of estimated nutritional needs. 2. Monitor PO intake, wt, nutrition related labs, and skin integrity to trend WNL. 3. F/U as low risk in 7-10 days, 12/29-01/01.
--- NOTE | 2019-12-26 16:14 | Progress Notes ---
DATE: 12/26/2019 SUBJECTIVE: Chart reviewed and the patient interviewed. Also discussed the patient's condition with the staff and reviewed records and labs. The patient is still restless and is still in an irritable and angry mood. The patient also was yelling and screaming during interview and she wanted to be left alone and she does not want to have any conversation or any discussions. She kept rambling and screaming with words that are difficult to understand. At the same time, the patient has continued to comply with medications and no side effects of medications. The patient's gait is steady, vital signs are stable and no new labs are available for review. MENTAL STATUS EXAMINATION: Disheveled. Irritable mood. Angry. Yelling and screaming during the interview and difficulty to redirect her. ASSESSMENT: The patient is still aggressive and is still agitated and needs close monitoring. TREATMENT PLAN: Seroquel was increased yesterday. We will continue same dose of Seroquel. Also, continue to work on behavioral modification and on her ineffective coping. Also, continue to work on her poor impulse control. ESTIMATED LENGTH OF STAY: 2-4 days. REASON FOR CONTINUED HOSPITAL STAY: The patient is still agitated and is still aggressive and needs close monitoring of her condition. [facility]# [id number]
[2019-12-27] MEDS: Venelex 60gm Tube TP SCH (08:49)
[2019-12-27] MEDS: Multivitamin Tab PO SCH (08:49)
--- NOTE | 2019-12-27 10:42 | Progress Notes ---
DATE: 12/27/2019 PSYCHIATRIC PROGRESS NOTE SUBJECTIVE: Chart was reviewed and the patient interviewed. Also discussed the patient's condition with the staff and reviewed records and labs. The patient continued to be extremely irritable and agitated. The patient also is still having severe mood swings. The patient also is restless and she still needs close monitoring. The patient's anxiety varies different hours of the day, but in general, she still needs close monitoring and prompt instructions. Otherwise, the patient is compliant with taking her medications with no side effects of medications. The patient's gait is steady. Vital signs are stable. No new labs available for review. MENTAL STATUS EXAMINATION: Anxious. Restless. Disorganized thoughts and unable to carry on coherent conversation. ASSESSMENT: The patient is still psychotic and needs close monitoring. TREATMENT PLAN: We will continue to monitor her behavior and her condition closely. Also, continue to work on behavioral modification. Also, we will add Klonopin 1 mg twice a day, hopefully to help with her severe anxiety and irritability. At the same time, we will continue to work on behavioral modification. ESTIMATED LENGTH OF STAY: 3-5 days. REASON FOR CONTINUED HOSPITAL STAY: The patient is still extremely irritable and agitated and needs close monitoring. JOB# [id number]
--- NOTE | 2019-12-27 13:22 | Internal Medicine Prog Note ---
Internal Medicine Subjective - Subjective Service Date: 12/27/19 Patient seen and examined:: without staff Patient is:: awake, interactive Patient Complaints of:: congestion Per staff patient has:: no adverse event, no episodes of fall Internal Medicine Objective - Results Recent Labs: Laboratory Last Values POC Glucose 97 MG/DL (70 - 105) 12/20/19 19:25 - Physical Exam Vitals and I&O: Vital Signs Temp 97.3 F 12/27/19 06:41 Pulse 60 12/27/19 06:41 Resp 20 12/27/19 06:41 BP 129/70 12/27/19 06:41 Pulse Ox 100 12/27/19 06:41 Intake & Output 12/26/19 12/27/19 12/27/19 18:59 06:59 18:59 Intake Total 900 120 Balance 900 120 Intake: Oral 900 120 Other: # Voids 3 1 # Bowel Movements 1 0 Stool Characteristics Soft Brown Active Medications: Current Medications Acetaminophen (Tylenol) 650 mg PO Q4H PRN PRN Reason: Pain (Mild 1-3) Stop: 02/18/20 22:33 [place] Oil/[place] Balsam/Trypsin (Venelex) 1 appl TP DAILY [facility] Stop: 02/22/20 08:59 Last Admin: 12/27/19 08:49 Dose: 1 appl Cholecalciferol (Vitamin D3) 2,000 iu PO DAILY [facility] Stop: 02/19/20 08:59 Last Admin: 12/27/19 08:49 Dose: 2,000 iu Clonazepam (Klonopin) 1 mg PO BID [facility]; Protocol Stop: 02/25/20 08:59 Last Admin: 12/27/19 09:09 Dose: Not Given Doxycycline Hyclate (Vibramycin) 100 mg PO BID [facility] Stop: 02/29/20 09:00 Last Admin: 12/27/19 09:04 Dose: 100 mg Levofloxacin (Levaquin) 500 mg PO DAILY [facility] Stop: 02/25/20 08:59 Lorazepam (Ativan) 0.5 mg PO Q4HR PRN; Protocol PRN Reason: Agitation Stop: 01/19/20 22:33 Last Admin: 12/26/19 12:28 Dose: 0.5 mg Magnesium Hydroxide (Milk Of Magnesia) 30 ml PO HS PRN PRN Reason: Constipation Stop: 02/18/20 22:42 Multivitamins/Vitamin C (Theragran) 1 tab PO DAILY [facility] Stop: 02/19/20 08:59 Last Admin: 12/27/19 08:49 Dose: 1 tab Quetiapine Fumarate 100 mg/ (Quetiapine Fumarate 50 mg) 150 mg PO BID [facility] Stop: 02/23/20 09:59 Last Admin: 12/27/19 08:49 Dose: 150 mg Quetiapine Fumarate 200 mg/ (Quetiapine Fumarate 50 mg) 250 mg PO HS [facility] Stop: 02/23/20 20:59 Last Admin: 12/26/19 21:20 Dose: 250 mg Temazepam (Restoril) 30 mg PO HS PRN; Protocol PRN Reason: Insomnia Stop: 02/18/20 23:57 Last Admin: 12/26/19 21:19 Dose: 30 mg Tramadol HCl (Ultram) 50 mg PO Q6HR PRN PRN Reason: Pain (Moderate 4-6) Stop: 02/18/20 23:58 Trazodone HCl (Desyrel) 75 mg PO HS [facility]; Protocol Stop: 02/22/20 20:59 Last Admin: 12/26/19 21:20 Dose: 75 mg Valproate Sodium (Depakene) 500 mg PO BID [facility]; Protocol Stop: 02/19/20 08:59 Last Admin: 12/27/19 08:49 Dose: 500 mg Zinc Sulfate (Zinc Sulfate) 220 mg PO BID [facility] Stop: 02/19/20 08:59 Last Admin: 12/27/19 08:49 Dose: 220 mg General: lethargic HEENT: NC/AT Neck: Supple Lungs: CTAB Cardiovascular: RRR, Normal S1, Normal S2 Abdomen: soft, non-tender Extremities: clear Internal Medicine Assmt/Plan - Assessment Assessment: 1. Right leg cellulitis--slowly improving 2. schizohaffective disorder d/w r.n. - Plan Plan: doxycycline 100 mg po bid continue monitoring of leg d/w r.n. Nutritional Asmnt/Malnutr-PDOC - Dietary Evaluation Malnutrition Findings (Please click <Entered> for more info): Nutritional Asmnt/Malnutrition Start: 12/23/19 12: 43 Text: Status: Complete Freq: Protocol: Document 12/23/19 12:44 MONICA (Rec: 12/23/19 12:49 MONICA [email or web address]) Nutritional Asmnt/Malnutrition Patient General Information Nutritional Screening Low Risk Diagnosis Psychosis Pertinent Medical Hx/Surgical Hx RT leg cellulitis secondary to Morganella and MSSA, RT lower extremity with non-healing ulcer, schizoaffective disorder, manic episode, severe, with psychotic features, UTI Subjective Information Pt is a 54-year-old male admitted on 12/19 d/t depression and anxiety. Pt is eating an estimated 90% of meals Per Meal/Nutrition Activity Record. Dietary is currently providing an estimated 3000 kcals and 140 gm Pro, per Pt PO intake this is providing an estimated 2700 kcals and 125gm Pro to meet 100+% kcal and 100+% Pro needs . As pt is eating 75-100% meals since admit date, discontinuing Glucerna TID which was ordered by nurse over the weekend d/t pt having it while being medically cleared at [facility]. Pt is adequately meeting estimated nutritional needs to support wound healing, adding Dave BID instead to provide amino acids and vitamins without extra calories. Anthropometrics HT: 54 WT: 170 LB (77.27 kg) ABW: 132 LB (60 kg) BMI: 29.20 (Overweight) GI/ Skin Integrity GI: WNL, Soft BM: 12/21 x1 I/O: 1260/Not Noted Skin: Venous Insufficiency Ulcer on Rt umanzor Wan: 22 Diet Order: Mechanical Soft, chopped Estimated Energy Needs: (Wound Healing, ABW) 3436-1340 kcals (25-30 kcals/ kg) 60-70g Pro (1.0-1.2 g/kg) 7068-8090 ml (25-30 ml/kg) Current Diet Order/ Nutrition Support Mechanical Soft, chopped Pertinent Medications Vitamin D3, MOM (PRN), Theragran, Zinc Sulfate Pertinent Labs 12/19: POC Glucose: 97 12/10: BUN/Cr 22/0.72, GFR 88, Glucose 103 Nutritional Hx/Data Height 1.63 m Height (Calculated Centimeters) 162.6 Current Weight (lbs) 77.111 kg Weight (Calculated Kilograms) 77.1 Weight (Calculated Grams) [address]66.[address] [place] Body Weight 120 LB (54.55 kg) % [place] Body Weight 142 Body Mass Index (BMI) 29.2 Weight Status Overweight GI Symptoms Last BM 12/21 x1 Skin Integrity/Comment: Skin: Venous Insufficiency Ulcer on Rt umanzor Wan: 22 Pt is adequately meeting estimated nutritional needs to support wound healing, adding Dave BID instead to provide amino acids and vitamins without extra calories. Estimated Nutritional Goals BEE in Kcals: Adj wt of IBW Calories/Kcals/Kg 25-30 Kcals Calculated 7745-8220 Protein: Adj wt of IBW Protein g/k.0-1.2 Protein Calculated 60-70 Fluid: ml 2941-9707 ml (25-30 ml/kg) Nutritional Problem 1. Problem Problem Increased vitamin and mineral needs Etiology r/t wound healing Signs/Symptoms: aeb venous Insufficiency Ulcer on Rt umanzor. Malnutrition Related to Morbid Obesity Malnutrition related to morbid obesity No Intervention/Recommendation Comments 1.Continue Mechanical Soft, chopped diet as tolerated. 2.Add Dave BID (completed). Expected Outcomes/Goals Expected Outcomes/Goals 1. PO intake to continue to meet >75% of estimated nutritional needs. 2. Monitor PO intake, wt, nutrition related labs, and skin integrity to trend WNL. 3. F/U as low risk in 7-10 days, 12/29-01/01.
[2019-12-28] MEDS: Venelex 60gm Tube TP SCH (09:17)
[2019-12-28] MEDS: Multivitamin Tab PO SCH (09:19)
--- NOTE | 2019-12-28 23:33 | Progress Notes ---
DATE: 12/28/[address] Blount. IDENTIFYING DATA: A 59-year-old female with history of schizoaffective bipolar type, ____, screaming ____. Overnight nursing staff reporting that the patient making bizarre statements with multiple voices, easily agitated as noted yesterday. Today on [id number] evaluation, the patient in the middle of the conversation changes voices, tones, childlike, disorganized, unable to follow through with her conversation. MENTAL STATUS EXAMINATION: Disorganized thought process, incoherent at times, unable to coordinate a simple linear conversation. ASSESSMENT AND PLAN: Schizoaffective who continues to present bizarre, delusional, who recently is tolerating the recent augmentation of medication, which includes the Prozac. We will continue with reconciliation review of medications, which include Klonopin 1 mg p.o. b.i.d., Seroquel and Depakote. Depakote level is pending. JOB# [id number]
[2019-12-29] MEDS: Venelex 60gm Tube TP SCH (08:25)
[2019-12-29] MEDS: Multivitamin Tab PO SCH (08:27)
--- NOTE | 2019-12-29 21:14 | Progress Notes ---
DATE: SUBJECTIVE: Today on [id number] evaluation, perseverates about using Glucerna. When attempted to discuss with her that it is importance to follow baseball umpire for little league rule, she mostly derails in conversation and disengage ____. PHYSICAL EXAMINATION: ____ incoherent. ASSESSMENT AND PLAN: Schizoaffective disorder. We will continue Klonopin, Seroquel, and Depakote. We will continue monitoring the patient's disorganized thought process that impairs the ability to maintain food, jail, clothing ____ structured environment. JOB# [id number]
[2019-12-30] MEDS: Multivitamin Tab PO SCH (08:40)
[2019-12-30] MEDS: Venelex 60gm Tube TP SCH (08:56)
--- NOTE | 2019-12-30 09:06 | Progress Notes ---
DATE: 12/30/2019 SUBJECTIVE: Today on arbq-vo-lvas evaluation, the patient reports that she is a millionaire and she is going to buy a home, multiple homes. There ____ conversation. She has a magazine ____ her room, which she refers to as she is going to buy the homes, incoherent at times. MENTAL STATUS EXAMINATION: Incoherent, disorganized, delusional, distress. ASSESSMENT AND PLAN: Schizoaffective disorder stabilized with the current medication regimen. Due to the patient still ongoing disorganized state, unable to formulate safe plan outside the structured environment. JOB# [id number]
[2019-12-31] MEDS: Venelex 60gm Tube TP SCH (08:38)
[2019-12-31] MEDS: Multivitamin Tab PO SCH (08:38)
--- NOTE | 2019-12-31 14:42 | Internal Medicine Prog Note ---
Internal Medicine Subjective - Subjective Service Date: 12/31/19 Patient seen and examined:: without staff Patient is:: asleep, non-interactive Patient Complaints of:: congestion Per staff patient has:: no adverse event, no episodes of fall Internal Medicine Objective - Results Recent Labs: Laboratory Last Values POC Glucose 97 MG/DL (70 - 105) 12/20/19 19:25 - Physical Exam Vitals and I&O: Vital Signs Temp 98.3 F 12/31/19 13:57 Pulse 73 12/31/19 13:57 Resp 16 12/31/19 13:57 BP 91/66 12/31/19 13:57 Pulse Ox 98 12/31/19 13:57 Intake & Output 12/30/19 12/31/19 12/31/19 18:59 06:59 18:59 Intake Total 240 Balance 240 Intake: Oral 240 Other: # Voids 3 2 # Bowel Movements 1 Active Medications: Current Medications Acetaminophen (Tylenol) 650 mg PO Q4H PRN PRN Reason: Pain (Mild 1-3) Stop: 02/18/20 22:33 [place] Oil/[place] Balsam/Trypsin (Venelex) 1 appl TP DAILY [facility] Stop: 02/22/20 08:59 Last Admin: 12/31/19 08:38 Dose: 1 appl Cholecalciferol (Vitamin D3) 2,000 iu PO DAILY [facility] Stop: 02/19/20 08:59 Last Admin: 12/31/19 08:38 Dose: 2,000 iu Clonazepam (Klonopin) 1 mg PO BID [facility]; Protocol Stop: 02/25/20 08:59 Last Admin: 12/31/19 08:39 Dose: 1 mg Levofloxacin (Levaquin) 500 mg PO DAILY [facility] Stop: 02/25/20 08:59 Last Admin: 12/31/19 08:39 Dose: 500 mg Lorazepam (Ativan) 0.5 mg PO Q4HR PRN; Protocol PRN Reason: Agitation Stop: 01/19/20 22:33 Last Admin: 12/29/19 01:18 Dose: 0.5 mg Magnesium Hydroxide (Milk Of Magnesia) 30 ml PO HS PRN PRN Reason: Constipation Stop: 02/18/20 22:42 Multivitamins/Vitamin C (Theragran) 1 tab PO DAILY [facility] Stop: 02/19/20 08:59 Last Admin: 12/31/19 08:38 Dose: 1 tab Quetiapine Fumarate 100 mg/ (Quetiapine Fumarate 50 mg) 150 mg PO BID [facility] Stop: 02/23/20 09:59 Last Admin: 12/31/19 08:38 Dose: 150 mg Quetiapine Fumarate 200 mg/ (Quetiapine Fumarate 50 mg) 250 mg PO HS [facility] Stop: 02/23/20 20:59 Last Admin: 12/30/19 20:59 Dose: 250 mg Temazepam (Restoril) 30 mg PO HS PRN; Protocol PRN Reason: Insomnia Stop: 02/18/20 23:57 Last Admin: 12/28/19 21:15 Dose: 30 mg Trazodone HCl (Desyrel) 75 mg PO HS [facility]; Protocol Stop: 02/22/20 20:59 Last Admin: 12/30/19 20:59 Dose: 75 mg Valproate Sodium (Depakene) 500 mg PO BID [facility]; Protocol Stop: 02/19/20 08:59 Last Admin: 12/31/19 08:38 Dose: 500 mg Zinc Sulfate (Zinc Sulfate) 220 mg PO BID [facility] Stop: 02/19/20 08:59 Last Admin: 12/31/19 08:39 Dose: 220 mg General: lethargic HEENT: NC/AT Neck: Supple Lungs: CTAB Cardiovascular: RRR, Normal S1, Normal S2 Abdomen: soft, non-tender Extremities: clear Neurological: no change Internal Medicine Assmt/Plan - Assessment Assessment: 1. Right leg cellulitis--slowly improving 2. schizohaffective disorder 3. Acute psychosis d/w r.n. - Plan Plan: doxycycline 100 mg po bid continue monitoring of leg d/w r.n. Nutritional Asmnt/Malnutr-PDOC - Dietary Evaluation Malnutrition Findings (Please click <Entered> for more info): Nutritional Asmnt/Malnutrition Start: 12/23/19 12: 43 Text: Status: Complete Freq: Protocol: Document 12/23/19 12:44 MONICA (Rec: 12/23/19 12:49 MONICA [email or web address]) Nutritional Asmnt/Malnutrition Patient General Information Nutritional Screening Low Risk Diagnosis Psychosis Pertinent Medical Hx/Surgical Hx RT leg cellulitis secondary to Morganella and MSSA, RT lower extremity with non-healing ulcer, schizoaffective disorder, manic episode, severe, with psychotic features, UTI Subjective Information Pt is a 54-year-old male admitted on 12/19 d/t depression and anxiety. Pt is eating an estimated 90% of meals Per Meal/Nutrition Activity Record. Dietary is currently providing an estimated 3000 kcals and 140 gm Pro, per Pt PO intake this is providing an estimated 2700 kcals and 125gm Pro to meet 100+% kcal and 100+% Pro needs . As pt is eating 75-100% meals since admit date, discontinuing Glucerna TID which was ordered by nurse over the weekend d/t pt having it while being medically cleared at [facility]. Pt is adequately meeting estimated nutritional needs to support wound healing, adding Dave BID instead to provide amino acids and vitamins without extra calories. Anthropometrics HT: 54 WT: 170 LB (77.27 kg) ABW: 132 LB (60 kg) BMI: 29.20 (Overweight) GI/ Skin Integrity GI: WNL, Soft BM: 12/21 x1 I/O: 1260/Not Noted Skin: Venous Insufficiency Ulcer on Rt umanzor Wan: 22 Diet Order: Mechanical Soft, chopped Estimated Energy Needs: (Wound Healing, ABW) 9881-7817 kcals (25-30 kcals/ kg) 60-70g Pro (1.0-1.2 g/kg) 4364-0836 ml (25-30 ml/kg) Current Diet Order/ Nutrition Support Mechanical Soft, chopped Pertinent Medications Vitamin D3, MOM (PRN), Theragran, Zinc Sulfate Pertinent Labs 12/19: POC Glucose: 97 12/10: BUN/Cr 22/0.72, GFR 88, Glucose 103 Nutritional Hx/Data Height 1.63 m Height (Calculated Centimeters) 162.6 Current Weight (lbs) 77.111 kg Weight (Calculated Kilograms) 77.1 Weight (Calculated Grams) 59906.7 [place] Body Weight 120 LB (54.55 kg) % [place] Body Weight 142 Body Mass Index (BMI) 29.2 Weight Status Overweight GI Symptoms Last BM 12/21 x1 Skin Integrity/Comment: Skin: Venous Insufficiency Ulcer on Rt umanzor Wan: 22 Pt is adequately meeting estimated nutritional needs to support wound healing, adding Dave BID instead to provide amino acids and vitamins without extra calories. Estimated Nutritional Goals BEE in Kcals: Adj wt of IBW Calories/Kcals/Kg 25-30 Kcals Calculated 5117-2042 Protein: Adj wt of IBW Protein g/k.0-1.2 Protein Calculated 60-70 Fluid: ml 9332-2847 ml (25-30 ml/kg) Nutritional Problem 1. Problem Problem Increased vitamin and mineral needs Etiology r/t wound healing Signs/Symptoms: aeb venous Insufficiency Ulcer on Rt umanzor. Malnutrition Related to Morbid Obesity Malnutrition related to morbid obesity No Intervention/Recommendation Comments 1.Continue Mechanical Soft, chopped diet as tolerated. 2.Add Dave BID (completed). Expected Outcomes/Goals Expected Outcomes/Goals 1. PO intake to continue to meet >75% of estimated nutritional needs. 2. Monitor PO intake, wt, nutrition related labs, and skin integrity to trend WNL. 3. F/U as low risk in 7-10 days, 12/29-01/01.
--- NOTE | 2020-01-01 02:29 | Progress Notes ---
DATE: 12/31/2019 SUBJECTIVE: Chart reviewed and the patient interviewed. Also discussed the patient's condition with the staff and reviewed records and labs. The patient continued to be agitated and in irritable mood, but her affect is slightly brighter. The patient still has grandiose delusions and she thinks that she owns multiple homes. The patient also is still paranoid and suspicious, and still has episodes of anger and irritability with yelling and screaming. Otherwise, the patient continued to comply with taking her medications with no side effects of medications. Gait is steady. Vital signs are stable and no new labs available for review. MENTAL STATUS EXAMINATION: Anxious. Suspicious and paranoid. Unkempt. Thought processes are disorganized. Grandiose delusions. Flight of ideas. The patient denies any hallucinations, but actively responding. Easily agitated. ASSESSMENT: The patient is still agitated and psychotic. TREATMENT PLAN: Continue to monitor behavior and condition closely. Also continue adjusting psychotropic medications and work on discharge plans and behavior modification. JOB# [id number]
[2020-01-01] MEDS: Venelex 60gm Tube TP SCH (08:18)
[2020-01-01] MEDS: Multivitamin Tab PO SCH (08:20)
--- NOTE | 2020-01-01 17:08 | Internal Medicine Prog Note ---
Internal Medicine Subjective - Subjective Service Date: 01/01/20 Patient is:: asleep, non-interactive Patient Complaints of:: congestion Per staff patient has:: no adverse event, no episodes of fall Internal Medicine Objective - Results Recent Labs: Laboratory Last Values POC Glucose 97 MG/DL (70 - 105) 12/20/19 19:25 - Physical Exam Vitals and I&O: Vital Signs Temp 97.8 F 01/01/20 14:00 Pulse 98 01/01/20 14:00 Resp 18 01/01/20 14:00 BP 115/70 01/01/20 14:00 Pulse Ox 98 01/01/20 14:00 Intake & Output 12/31/19 01/01/20 01/01/20 18:59 06:59 18:59 Intake Total 1600 120 Balance 1600 120 Intake: Oral 1600 120 Other: # Voids 4 3 # Bowel Movements 1 0 Active Medications: Current Medications Acetaminophen (Tylenol) 650 mg PO Q4H PRN PRN Reason: Pain (Mild 1-3) Stop: 02/18/20 22:33 [place] Oil/[place] Balsam/Trypsin (Venelex) 1 appl TP DAILY BUTCH Stop: 02/22/20 08:59 Last Admin: 01/01/20 08:18 Dose: 1 appl Cholecalciferol (Vitamin D3) 2,000 iu PO DAILY BUTCH Stop: 02/19/20 08:59 Last Admin: 01/01/20 08:18 Dose: 2,000 iu Clonazepam (Klonopin) 1 mg PO BID BUTCH; Protocol Stop: 02/25/20 08:59 Last Admin: 01/01/20 16:44 Dose: 1 mg Levofloxacin (Levaquin) 500 mg PO DAILY BUTCH Stop: 02/25/20 08:59 Last Admin: 01/01/20 08:19 Dose: 500 mg Lorazepam (Ativan) 0.5 mg PO Q4HR PRN; Protocol PRN Reason: Agitation Stop: 01/19/20 22:33 Last Admin: 12/29/19 01:18 Dose: 0.5 mg Magnesium Hydroxide (Milk Of Magnesia) 30 ml PO HS PRN PRN Reason: Constipation Stop: 02/18/20 22:42 Last Admin: 12/31/19 20:29 Dose: 30 ml Multivitamins/Vitamin C (Theragran) 1 tab PO DAILY BUTCH Stop: 02/19/20 08:59 Last Admin: 01/01/20 08:20 Dose: 1 tab Quetiapine Fumarate 100 mg/ (Quetiapine Fumarate 50 mg) 150 mg PO BID BUTCH Stop: 02/23/20 09:59 Last Admin: 01/01/20 16:44 Dose: 150 mg Quetiapine Fumarate 200 mg/ (Quetiapine Fumarate 50 mg) 250 mg PO HS BUTCH Stop: 02/23/20 20:59 Last Admin: 12/31/19 20:20 Dose: 250 mg Temazepam (Restoril) 30 mg PO HS PRN; Protocol PRN Reason: Insomnia Stop: 02/18/20 23:57 Last Admin: 12/28/19 21:15 Dose: 30 mg Trazodone HCl (Desyrel) 75 mg PO HS BUTCH; Protocol Stop: 02/22/20 20:59 Last Admin: 12/31/19 20:19 Dose: 75 mg Valproate Sodium (Depakene) 500 mg PO BID BUTCH; Protocol Stop: 02/19/20 08:59 Last Admin: 01/01/20 16:45 Dose: 500 mg Zinc Sulfate (Zinc Sulfate) 220 mg PO BID BUTCH Stop: 02/19/20 08:59 Last Admin: 01/01/20 16:45 Dose: 220 mg General: lethargic HEENT: NC/AT Neck: Supple Lungs: CTAB Cardiovascular: RRR, Normal S1, Normal S2 Abdomen: soft, non-tender Extremities: clear Neurological: no change Internal Medicine Assmt/Plan - Assessment Assessment: 1. Right leg cellulitis 2. schizohaffective disorder 3. Acute psychosis d/w r.n. - Plan Plan: doxycycline 100 mg po bid continue monitoring of leg continue levaquin 500 mg po daily D/w R.N. Nutritional Asmnt/Malnutr-PDOC - Dietary Evaluation Malnutrition Findings (Please click <Entered> for more info): Nutritional Asmnt/Malnutrition Start: 12/23/19 12: 43 Text: Status: Complete Freq: Protocol: Document 12/23/19 12:44 MONICA (Rec: 12/23/19 12:49 MONICA [email or web address]) Nutritional Asmnt/Malnutrition Patient General Information Nutritional Screening Low Risk Diagnosis Psychosis Pertinent Medical Hx/Surgical Hx RT leg cellulitis secondary to Morganella and MSSA, RT lower extremity with non-healing ulcer, schizoaffective disorder, manic episode, severe, with psychotic features, UTI Subjective Information Pt is a 54-year-old male admitted on 12/19 d/t depression and anxiety. Pt is eating an estimated 90% of meals Per Meal/Nutrition Activity Record. Dietary is currently providing an estimated 3000 kcals and 140 gm Pro, per Pt PO intake this is providing an estimated 2700 kcals and 125gm Pro to meet 100+% kcal and 100+% Pro needs . As pt is eating 75-100% meals since admit date, discontinuing Glucerna TID which was ordered by nurse over the weekend d/t pt having it while being medically cleared at [facility]. Pt is adequately meeting estimated nutritional needs to support wound healing, adding Dave BID instead to provide amino acids and vitamins without extra calories. Anthropometrics HT: 54 WT: 170 LB (77.27 kg) ABW: 132 LB (60 kg) BMI: 29.20 (Overweight) GI/ Skin Integrity GI: WNL, Soft BM: 12/21 x1 I/O: 1260/Not Noted Skin: Venous Insufficiency Ulcer on Rt umanzor Wan: 22 Diet Order: Mechanical Soft, chopped Estimated Energy Needs: (Wound Healing, ABW) 9261-9157 kcals (25-30 kcals/ kg) 60-70g Pro (1.0-1.2 g/kg) 4522-0740 ml (25-30 ml/kg) Current Diet Order/ Nutrition Support Mechanical Soft, chopped Pertinent Medications Vitamin D3, MOM (PRN), Theragran, Zinc Sulfate Pertinent Labs 12/19: POC Glucose: 97 /: BUN/Cr 22/0.72, GFR 88, Glucose 103 Nutritional Hx/Data Height 1.63 m Height (Calculated Centimeters) 162.6 Current Weight (lbs) 77.111 kg Weight (Calculated Kilograms) 77.1 Weight (Calculated Grams) 89666.7 [place] Body Weight 120 LB (54.55 kg) % [place] Body Weight 142 Body Mass Index (BMI) 29.2 Weight Status Overweight GI Symptoms Last BM 12/21 x1 Skin Integrity/Comment: Skin: Venous Insufficiency Ulcer on Rt umaznor Wan: 22 Pt is adequately meeting estimated nutritional needs to support wound healing, adding Dave BID instead to provide amino acids and vitamins without extra calories. Estimated Nutritional Goals BEE in Kcals: Adj wt of IBW Calories/Kcals/Kg 25-30 Kcals Calculated 9573-1168 Protein: Adj wt of IBW Protein g/k.0-1.2 Protein Calculated 60-70 Fluid: ml 2106-8917 ml (25-30 ml/kg) Nutritional Problem 1. Problem Problem Increased vitamin and mineral needs Etiology r/t wound healing Signs/Symptoms: aeb venous Insufficiency Ulcer on Rt umanzor. Malnutrition Related to Morbid Obesity Malnutrition related to morbid obesity No Intervention/Recommendation Comments 1.Continue Mechanical Soft, chopped diet as tolerated. 2.Add Dave BID (completed). Expected Outcomes/Goals Expected Outcomes/Goals 1. PO intake to continue to meet >75% of estimated nutritional needs. 2. Monitor PO intake, wt, nutrition related labs, and skin integrity to trend WNL. 3. F/U as low risk in 7-10 days, 12/29-01/01.
--- NOTE | 2020-01-01 21:02 | Progress Notes ---
DATE: 01/01/2020 SUBJECTIVE: Chart reviewed and the patient interviewed. Also discussed the patient's condition with the staff and reviewed records and labs. The patient's affect is brighter. The patient is less irritable and less agitated. The patient also is interacting more with peers and with others. She denies any intention to harm herself or others. Also, easier to redirect. ASSESSMENT: The patient is calmer and less irritable and less agitated. TREATMENT PLAN: Continue to monitor her condition in [facility]. We will discharge the patient today since she is not psychotic or agitated and follow up there. JOB# [id number]
[2020-01-02] MEDS: Multivitamin Tab PO SCH (08:49)
[2020-01-02] MEDS: Venelex 60gm Tube TP SCH (08:54)
--- NOTE | 2020-01-02 10:59 | Discharge Summary ---
DATE OF DISCHARGE: 01/02/2020 AGE: 59. SEX: Female. PHYSICIAN: Dr. Aquino. FINAL DIAGNOSIS AND PRIMARY DIAGNOSIS: Schizoaffective disorder, bipolar type, severe, with psychotic features. REASON FOR HOSPITALIZATION: The patient was admitted to the hospital because of increased agitation and irritability in [facility] and I transferred the patient to [facility]. HOSPITAL COURSE: The patient continued to be agitated and restless. The patient was admitted to [facility] a couple of times because of his agitation and also to stabilize his medical condition. The patient was not suicidal or homicidal. The patient also was started on Seroquel and the dose adjusted to 250 mg at bedtime and 150 mg twice a day. The patient also given Depakote 500 mg twice a day. Gradually, the patient's affect was brighter. The patient was less irritable and less agitated. The patient also was easier to redirect her. The patient was admitted to [facility] with plan for follow her there. Patient's gait is steady. PHYSICAL EXAMINATION: The patient was monitored closely by Dr. Barrett. AFTER DISCHARGE PLANS: The patient discharged from the hospital and was admitted to [facility]. The patient was also to be followed up there. MENTAL STATUS EXAM ON DISCHARGE: Calm. Cooperative. Compliant with taking her medications. No hallucinations or delusions. EXPECTED OUTCOME AFTER DISCHARGE: Fair if the patient continued to comply with taking her psychotropic medications and will comply with discharge plans. [facility]# [id number]
--- NOTE | 2020-01-02 13:09 | Discharge Summary ---
DATE OF DISCHARGE: SUBJECTIVE: Chart was reviewed and the patient interviewed. Also discussed the patient's condition with the staff and reviewed the records and labs. The patient's affect is brighter. The patient is less irritable and less agitated. The patient also is interacting more with peers and with others. The patient denies any hallucinations or delusions and she denies any suicidal or homicidal ideations. ASSESSMENT: The patient is cooperative and is not agitated. TREATMENT PLAN: The patient was accepted to go to [facility] and I spoke to the coordinator in [facility] and she accepted the patient there. We will discharge the patient today to [facility] and we will follow up the patient there. At the time of discharge, the patient was not suicidal or homicidal, and she was cooperative with her treatment. [facility]# [id number]
--- NOTE | 2020-01-02 15:12 | Internal Medicine Prog Note ---
Internal Medicine Subjective - Subjective Service Date: 01/02/20 Patient is:: awake, non-interactive Patient Complaints of:: congestion Per staff patient has:: no adverse event, no episodes of fall Internal Medicine Objective - Results Recent Labs: Laboratory Last Values POC Glucose 97 MG/DL (70 - 105) 12/20/19 19:25 - Physical Exam Vitals and I&O: Vital Signs Temp 98.5 F 01/02/20 14:00 Pulse 81 01/02/20 14:00 Resp 20 01/02/20 14:00 BP 117/62 01/02/20 14:00 Pulse Ox 96 01/02/20 14:00 Intake & Output 01/01/20 01/02/20 01/02/20 18:59 06:59 18:59 Intake Total 900 240 Balance 900 240 Intake: Oral 900 240 Other: # Voids 3 2 # Bowel Movements 1 0 Active Medications: Current Medications Acetaminophen (Tylenol) 650 mg PO Q4H PRN PRN Reason: Pain (Mild 1-3) Stop: 02/18/20 22:33 [place] Oil/[place] Balsam/Trypsin (Venelex) 1 appl TP DAILY BUTCH Stop: 02/22/20 08:59 Last Admin: 01/02/20 08:54 Dose: 1 appl Cholecalciferol (Vitamin D3) 2,000 iu PO DAILY BUTCH Stop: 02/19/20 08:59 Last Admin: 01/02/20 08:53 Dose: Not Given Clonazepam (Klonopin) 1 mg PO BID BUTCH; Protocol Stop: 02/25/20 08:59 Last Admin: 01/02/20 08:50 Dose: Not Given Levofloxacin (Levaquin) 500 mg PO DAILY BUTCH Stop: 02/25/20 08:59 Last Admin: 01/02/20 08:52 Dose: 500 mg Lorazepam (Ativan) 0.5 mg PO Q4HR PRN; Protocol PRN Reason: Agitation Stop: 01/19/20 22:33 Last Admin: 12/29/19 01:18 Dose: 0.5 mg Magnesium Hydroxide (Milk Of Magnesia) 30 ml PO HS PRN PRN Reason: Constipation Stop: 02/18/20 22:42 Last Admin: 12/31/19 20:29 Dose: 30 ml Multivitamins/Vitamin C (Theragran) 1 tab PO DAILY BUTCH Stop: 02/19/20 08:59 Last Admin: 01/02/20 08:49 Dose: 1 tab Quetiapine Fumarate 100 mg/ (Quetiapine Fumarate 50 mg) 150 mg PO BID [facility] Stop: 02/23/20 09:59 Last Admin: 01/02/20 08:51 Dose: 150 mg Quetiapine Fumarate 200 mg/ (Quetiapine Fumarate 50 mg) 250 mg PO HS [facility] Stop: 02/23/20 20:59 Last Admin: 01/01/20 21:01 Dose: 250 mg Temazepam (Restoril) 30 mg PO HS PRN; Protocol PRN Reason: Insomnia Stop: 02/18/20 23:57 Last Admin: 01/01/20 21:11 Dose: 30 mg Trazodone HCl (Desyrel) 75 mg PO HS BUTCH; Protocol Stop: 02/22/20 20:59 Last Admin: 01/01/20 21:14 Dose: Not Given Valproate Sodium (Depakene) 500 mg PO BID [facility]; Protocol Stop: 02/19/20 08:59 Last Admin: 01/02/20 08:53 Dose: 500 mg Zinc Sulfate (Zinc Sulfate) 220 mg PO BID [facility] Stop: 02/19/20 08:59 Last Admin: 01/02/20 09:01 Dose: 220 mg General: lethargic HEENT: NC/AT Neck: Supple Lungs: CTAB Cardiovascular: RRR, Normal S1, Normal S2 Abdomen: soft, non-tender Extremities: clear Neurological: no change Internal Medicine Assmt/Plan - Assessment Assessment: 1. Right leg cellulitis 2. schizohaffective disorder 3. Acute psychosis d/w r.n. - Plan Plan: continue monitoring of leg continue levaquin 500 mg po daily D/w R.N. Nutritional Asmnt/Malnutr-PDOC - Dietary Evaluation Malnutrition Findings (Please click <Entered> for more info): Nutritional Asmnt/Malnutrition Start: 12/23/19 12: 43 Text: Status: Complete Freq: Protocol: Document 12/23/19 12:44 MONICA (Rec: 12/23/19 12:49 MONICA [email or web address]) Nutritional Asmnt/Malnutrition Patient General Information Nutritional Screening Low Risk Diagnosis Psychosis Pertinent Medical Hx/Surgical Hx RT leg cellulitis secondary to Morganella and MSSA, RT lower extremity with non-healing ulcer, schizoaffective disorder, manic episode, severe, with psychotic features, UTI Subjective Information Pt is a 54-year-old male admitted on 12/19 d/t depression and anxiety. Pt is eating an estimated 90% of meals Per Meal/Nutrition Activity Record. Dietary is currently providing an estimated 3000 kcals and 140 gm Pro, per Pt PO intake this is providing an estimated 2700 kcals and 125gm Pro to meet 100+% kcal and 100+% Pro needs . As pt is eating 75-100% meals since admit date, discontinuing Glucerna TID which was ordered by nurse over the weekend d/t pt having it while being medically cleared at [facility]. Pt is adequately meeting estimated nutritional needs to support wound healing, adding Daev BID instead to provide amino acids and vitamins without extra calories. Anthropometrics HT: 54 WT: 170 LB (77.27 kg) ABW: 132 LB (60 kg) BMI: 29.20 (Overweight) GI/ Skin Integrity GI: WNL, Soft BM: 12/21 x1 I/O: 1260/Not Noted Skin: Venous Insufficiency Ulcer on Rt umanzor Wan: 22 Diet Order: Mechanical Soft, chopped Estimated Energy Needs: (Wound Healing, ABW) 4269-4079 kcals (25-30 kcals/ kg) 60-70g Pro (1.0-1.2 g/kg) 2999-0929 ml (25-30 ml/kg) Current Diet Order/ Nutrition Support Mechanical Soft, chopped Pertinent Medications Vitamin D3, MOM (PRN), Theragran, Zinc Sulfate Pertinent Labs 12/19: POC Glucose: 97 12/10: BUN/Cr 22/0.72, GFR 88, Glucose 103 Nutritional Hx/Data Height 1.63 m Height (Calculated Centimeters) 162.6 Current Weight (lbs) 77.111 kg Weight (Calculated Kilograms) 77.1 Weight (Calculated Grams) 43022.7 [place] Body Weight 120 LB (54.55 kg) % [place] Body Weight 142 Body Mass Index (BMI) 29.2 Weight Status Overweight GI Symptoms Last BM 12/21 x1 Skin Integrity/Comment: Skin: Venous Insufficiency Ulcer on Rt umanzor Wan: 22 Pt is adequately meeting estimated nutritional needs to support wound healing, adding Dave BID instead to provide amino acids and vitamins without extra calories. Estimated Nutritional Goals BEE in Kcals: Adj wt of IBW Calories/Kcals/Kg 25-30 Kcals Calculated 5976-1845 Protein: Adj wt of IBW Protein g/k.0-1.2 Protein Calculated 60-70 Fluid: ml 2664-0714 ml (25-30 ml/kg) Nutritional Problem 1. Problem Problem Increased vitamin and mineral needs Etiology r/t wound healing Signs/Symptoms: aeb venous Insufficiency Ulcer on Rt umanzor. Malnutrition Related to Morbid Obesity Malnutrition related to morbid obesity No Intervention/Recommendation Comments 1.Continue Mechanical Soft, chopped diet as tolerated. 2.Add Dave BID (completed). Expected Outcomes/Goals Expected Outcomes/Goals 1. PO intake to continue to meet >75% of estimated nutritional needs. 2. Monitor PO intake, wt, nutrition related labs, and skin integrity to trend WNL. 3. F/U as low risk in 7-10 days, 12/29-01/01.
[2020-01-02] MEDS ORDERED: GLUCAGON HCl 1 MG KIT IM PRN (18:47)
[2020-01-02] MEDS ORDERED: INSULIN LISPRO SLIDING SCALE 100 UNITS/ML UNIT SUBQ SCH (21:00)
[2020-01-03] MEDS: Multivitamin Tab PO SCH (08:58)
--- NOTE | 2020-01-03 13:28 | Progress Notes ---
DATE: SUBJECTIVE: Chart was reviewed and the patient interviewed. Also discussed the patient's condition with the staff and reviewed records and labs. The patient was supposed to be discharged yesterday, but Dr. Barrett did not discharge the patient; although, the order was in the chart. Nobody also contacted me to tell me that the discharge was canceled. The patient is calm and cooperative. She also denies hallucinations or delusions. The patient was accepted by [facility] COVID-19 test was ordered on the of this month. It is not clear to me why we need another test, but at the same time, the foster care case manager accepted the patient to [facility], did not see any need for another COVID test. TREATMENT PLAN: Planning to discharge the patient today and outpatient treatment and followup to continue as an outpatient. JOB# [id number]
[2020-01-03] MEDS: Venelex 60gm Tube TP SCH (13:38)
--- NOTE | 2020-01-03 15:45 | Internal Medicine Prog Note ---
Internal Medicine Subjective - Subjective Service Date: 01/03/20 Patient is:: awake, non-interactive Patient Complaints of:: congestion Per staff patient has:: no adverse event, no episodes of fall Internal Medicine Objective - Results Recent Labs: Laboratory Last Values POC Glucose 97 MG/DL (70 - 105) 12/20/19 19:25 - Physical Exam Vitals and I&O: Vital Signs Temp 98.1 F 01/03/20 14:49 Pulse 78 01/03/20 14:49 Resp 18 01/03/20 14:49 BP 131/72 01/03/20 14:49 Pulse Ox 100 01/03/20 14:49 Intake & Output 01/02/20 01/03/20 01/03/20 18:59 06:59 18:59 Intake Total 1200 120 Balance 1200 120 Intake: Oral 1200 120 Other: # Voids 1 # Bowel Movements 1 0 Active Medications: Current Medications Acetaminophen (Tylenol) 650 mg PO Q4H PRN PRN Reason: Pain (Mild 1-3) Stop: 02/18/20 22:33 [place] Oil/[place]i Balsam/Trypsin (Venelex) 1 appl TP DAILY BUTCH Stop: 02/22/20 08:59 Last Admin: 01/03/20 13:38 Dose: 1 appl Cholecalciferol (Vitamin D3) 2,000 iu PO DAILY BUTCH Stop: 02/19/20 08:59 Last Admin: 01/03/20 08:58 Dose: 2,000 iu Clonazepam (Klonopin) 1 mg PO BID BUTCH; Protocol Stop: 02/25/20 08:59 Last Admin: 01/03/20 08:59 Dose: 1 mg Levofloxacin (Levaquin) 500 mg PO DAILY BUTCH Stop: 02/25/20 08:59 Last Admin: 01/03/20 08:59 Dose: 500 mg Lorazepam (Ativan) 0.5 mg PO Q4HR PRN; Protocol PRN Reason: Agitation Stop: 01/19/20 22:33 Last Admin: 12/29/19 01:18 Dose: 0.5 mg Magnesium Hydroxide (Milk Of Magnesia) 30 ml PO HS PRN PRN Reason: Constipation Stop: 02/18/20 22:42 Last Admin: 12/31/19 20:29 Dose: 30 ml Multivitamins/Vitamin C (Theragran) 1 tab PO DAILY BUTCH Stop: 02/19/20 08:59 Last Admin: 01/03/20 08:58 Dose: 1 tab Quetiapine Fumarate 100 mg/ (Quetiapine Fumarate 50 mg) 150 mg PO BID [facility] Stop: 02/23/20 09:59 Last Admin: 01/03/20 08:58 Dose: 150 mg Quetiapine Fumarate 200 mg/ (Quetiapine Fumarate 50 mg) 250 mg PO HS [facility] Stop: 02/23/20 20:59 Last Admin: 01/02/20 20:54 Dose: 250 mg Temazepam (Restoril) 30 mg PO HS PRN; Protocol PRN Reason: Insomnia Stop: 02/18/20 23:57 Last Admin: 01/02/20 20:54 Dose: 30 mg Trazodone HCl (Desyrel) 75 mg PO HS BUTCH; Protocol Stop: 02/22/20 20:59 Last Admin: 01/02/20 20:59 Dose: Not Given Valproate Sodium (Depakene) 500 mg PO BID [facility]; Protocol Stop: 02/19/20 08:59 Last Admin: 01/03/20 08:58 Dose: 500 mg Zinc Sulfate (Zinc Sulfate) 220 mg PO BID [facility] Stop: 02/19/20 08:59 Last Admin: 01/03/20 08:58 Dose: 220 mg General: lethargic HEENT: NC/AT Neck: Supple Lungs: CTAB Cardiovascular: RRR, Normal S1, Normal S2 Abdomen: soft, non-tender Extremities: clear Neurological: no change Internal Medicine Assmt/Plan - Assessment Assessment: 1. Right leg cellulitis 2. schizohaffective disorder 3. Acute psychosis d/w r.n. - Plan Plan: continue monitoring of leg continue levaquin 500 mg po daily D/w R.N. Nutritional Asmnt/Malnutr-PDOC - Dietary Evaluation Malnutrition Findings (Please click <Entered> for more info): Nutritional Asmnt/Malnutrition Start: 12/23/19 12: 43 Text: Status: Complete Freq: Protocol: Document 12/23/19 12:44 MONICA (Rec: 12/23/19 12:49 MONICA [email or web address]) Nutritional Asmnt/Malnutrition Patient General Information Nutritional Screening Low Risk Diagnosis Psychosis Pertinent Medical Hx/Surgical Hx RT leg cellulitis secondary to Morganella and MSSA, RT lower extremity with non-healing ulcer, schizoaffective disorder, manic episode, severe, with psychotic features, UTI Subjective Information Pt is a 54-year-old male admitted on 12/19 d/t depression and anxiety. Pt is eating an estimated 90% of meals Per Meal/Nutrition Activity Record. Dietary is currently providing an estimated 3000 kcals and 140 gm Pro, per Pt PO intake this is providing an estimated 2700 kcals and 125gm Pro to meet 100+% kcal and 100+% Pro needs . As pt is eating 75-100% meals since admit date, discontinuing Glucerna TID which was ordered by nurse over the weekend d/t pt having it while being medically cleared at [facility]. Pt is adequately meeting estimated nutritional needs to support wound healing, adding Dave BID instead to provide amino acids and vitamins without extra calories. Anthropometrics HT: 54 WT: 170 LB (77.27 kg) ABW: 132 LB (60 kg) BMI: 29.20 (Overweight) GI/ Skin Integrity GI: WNL, Soft BM: 12/21 x1 I/O: 1260/Not Noted Skin: Venous Insufficiency Ulcer on Rt umanzor Wan: 22 Diet Order: Mechanical Soft, chopped Estimated Energy Needs: (Wound Healing, ABW) 6954-0776 kcals (25-30 kcals/ kg) 60-70g Pro (1.0-1.2 g/kg) 5137-2546 ml (25-30 ml/kg) Current Diet Order/ Nutrition Support Mechanical Soft, chopped Pertinent Medications Vitamin D3, MOM (PRN), Theragran, Zinc Sulfate Pertinent Labs 12/19: POC Glucose: 97 5/: BUN/Cr 22/0.72, GFR 88, Glucose 103 Nutritional Hx/Data Height 1.63 m Height (Calculated Centimeters) 162.6 Current Weight (lbs) 77.111 kg Weight (Calculated Kilograms) 77.1 Weight (Calculated Grams) 04834.7 [place] Body Weight 120 LB (54.55 kg) % [place] Body Weight 142 Body Mass Index (BMI) 29.2 Weight Status Overweight GI Symptoms Last BM 12/21 x1 Skin Integrity/Comment: Skin: Venous Insufficiency Ulcer on Rt umanzor Wan: 22 Pt is adequately meeting estimated nutritional needs to support wound healing, adding Dave BID instead to provide amino acids and vitamins without extra calories. Estimated Nutritional Goals BEE in Kcals: Adj wt of IBW Calories/Kcals/Kg 25-30 Kcals Calculated 5199-2693 Protein: Adj wt of IBW Protein g/k.0-1.2 Protein Calculated 60-70 Fluid: ml 7812-6268 ml (25-30 ml/kg) Nutritional Problem 1. Problem Problem Increased vitamin and mineral needs Etiology r/t wound healing Signs/Symptoms: aeb venous Insufficiency Ulcer on Rt umanzor. Malnutrition Related to Morbid Obesity Malnutrition related to morbid obesity No Intervention/Recommendation Comments 1.Continue Mechanical Soft, chopped diet as tolerated. 2.Add Dave BID (completed). Expected Outcomes/Goals Expected Outcomes/Goals 1. PO intake to continue to meet >75% of estimated nutritional needs. 2. Monitor PO intake, wt, nutrition related labs, and skin integrity to trend WNL. 3. F/U as low risk in 7-10 days, 12/29-01/01.
[2020-01-04] MEDS: Multivitamin Tab PO SCH (09:18)
[2020-01-04] MEDS: Venelex 60gm Tube TP SCH (09:18)
--- NOTE | 2020-01-04 14:05 | Internal Medicine Prog Note ---
Internal Medicine Subjective - Subjective Service Date: 01/04/20 Patient seen and examined:: without staff Patient is:: awake, non-interactive Patient Complaints of:: congestion Per staff patient has:: no adverse event, no episodes of fall Internal Medicine Objective - Results Recent Labs: Laboratory Last Values POC Glucose 97 MG/DL (70 - 105) 12/20/19 19:25 - Physical Exam Vitals and I&O: Vital Signs Temp 98.1 F 01/04/20 06:04 Pulse 66 01/04/20 06:04 Resp 18 01/04/20 06:04 BP 122/52 01/04/20 06:04 Pulse Ox 92 01/04/20 06:04 Intake & Output 01/03/20 01/04/20 01/04/20 18:59 06:59 18:59 Intake Total 240 Balance 240 Intake: Oral 240 Other: # Voids 2 Stool Characteristics Formed Active Medications: Current Medications Acetaminophen (Tylenol) 650 mg PO Q4H PRN PRN Reason: Pain (Mild 1-3) Stop: 02/18/20 22:33 [place] Oil/[place] Balsam/Trypsin (Venelex) 1 appl TP DAILY BUTCH Stop: 02/22/20 08:59 Last Admin: 01/04/20 09:18 Dose: 1 appl Cholecalciferol (Vitamin D3) 2,000 iu PO DAILY BUTCH Stop: 02/19/20 08:59 Last Admin: 01/04/20 09:18 Dose: 2,000 iu Clonazepam (Klonopin) 1 mg PO BID BUTCH; Protocol Stop: 02/25/20 08:59 Last Admin: 01/04/20 09:18 Dose: 1 mg Lorazepam (Ativan) 0.5 mg PO Q4HR PRN; Protocol PRN Reason: Agitation Stop: 01/19/20 22:33 Last Admin: 12/29/19 01:18 Dose: 0.5 mg Magnesium Hydroxide (Milk Of Magnesia) 30 ml PO HS PRN PRN Reason: Constipation Stop: 02/18/20 22:42 Last Admin: 12/31/19 20:29 Dose: 30 ml Multivitamins/Vitamin C (Theragran) 1 tab PO DAILY BUTCH Stop: 02/19/20 08:59 Last Admin: 01/04/20 09:18 Dose: 1 tab Quetiapine Fumarate 100 mg/ (Quetiapine Fumarate 50 mg) 150 mg PO BID BUT[facility] Stop: 02/23/20 09:59 Last Admin: 01/04/20 09:19 Dose: 150 mg Quetiapine Fumarate 200 mg/ (Quetiapine Fumarate 50 mg) 250 mg PO HS BUTCH Stop: 02/23/20 20:59 Last Admin: 01/03/20 21:00 Dose: 250 mg Temazepam (Restoril) 30 mg PO HS PRN; Protocol PRN Reason: Insomnia Stop: 02/18/20 23:57 Last Admin: 01/03/20 21:00 Dose: 30 mg Trazodone HCl (Desyrel) 75 mg PO HS BUTCH; Protocol Stop: 02/22/20 20:59 Last Admin: 01/03/20 20:59 Dose: 75 mg Valproate Sodium (Depakene) 500 mg PO BID BUTCH; Protocol Stop: 02/19/20 08:59 Last Admin: 01/04/20 09:19 Dose: 500 mg Zinc Sulfate (Zinc Sulfate) 220 mg PO BID BUT[facility] Stop: 02/19/20 08:59 Last Admin: 01/04/20 09:19 Dose: 220 mg General: lethargic HEENT: NC/AT Neck: Supple Lungs: CTAB Cardiovascular: RRR, Normal S1, Normal S2 Abdomen: soft, non-tender Extremities: clear Neurological: no change Internal Medicine Assmt/Plan - Assessment Assessment: 1. Right leg cellulitis 2. schizohaffective disorder 3. Acute psychosis d/w r.n. - Plan Plan: continue monitoring of leg Discharge was not held by me. Apparently COVID test was placed on name without my notice. Maybe custodial is requesting COVID test to acceptance. case management manager can follow-up D/w R.N. Nutritional Asmnt/Malnutr-PDOC - Dietary Evaluation Malnutrition Findings (Please click <Entered> for more info): Nutritional Asmnt/Malnutrition Start: 12/23/19 12: 43 Text: Status: Complete Freq: Protocol: Document 12/23/19 12:44 MONICA (Rec: 12/23/19 12:49 MONICA [email or web address]) Nutritional Asmnt/Malnutrition Patient General Information Nutritional Screening Low Risk Diagnosis Psychosis Pertinent Medical Hx/Surgical Hx RT leg cellulitis secondary to Morganella and MSSA, RT lower extremity with non-healing ulcer, schizoaffective disorder, manic episode, severe, with psychotic features, UTI Subjective Information Pt is a 54-year-old male admitted on 12/19 d/t depression and anxiety. Pt is eating an estimated 90% of meals Per Meal/Nutrition Activity Record. Dietary is currently providing an estimated 3000 kcals and 140 gm Pro, per Pt PO intake this is providing an estimated 2700 kcals and 125gm Pro to meet 100+% kcal and 100+% Pro needs . As pt is eating 75-100% meals since admit date, discontinuing Glucerna TID which was ordered by nurse over the weekend d/t pt having it while being medically cleared at [facility]. Pt is adequately meeting estimated nutritional needs to support wound healing, adding Dave BID instead to provide amino acids and vitamins without extra calories. Anthropometrics HT: 54 WT: 170 LB (77.27 kg) ABW: 132 LB (60 kg) BMI: 29.20 (Overweight) GI/ Skin Integrity GI: WNL, Soft BM: 12/21 x1 I/O: 1260/Not Noted Skin: Venous Insufficiency Ulcer on Rt umanzor Wan: 22 Diet Order: Mechanical Soft, chopped Estimated Energy Needs: (Wound Healing, ABW) 4932-6562 kcals (25-30 kcals/ kg) 60-70g Pro (1.0-1.2 g/kg) 4085-5956 ml (25-30 ml/kg) Current Diet Order/ Nutrition Support Mechanical Soft, chopped Pertinent Medications Vitamin D3, MOM (PRN), Theragran, Zinc Sulfate Pertinent Labs 12/19: POC Glucose: 97 12/10: BUN/Cr 22/0.72, GFR 88, Glucose 103 Nutritional Hx/Data Height 1.63 m Height (Calculated Centimeters) 162.6 Current Weight (lbs) 77.111 kg Weight (Calculated Kilograms) 77.1 Weight (Calculated Grams) 61386.7 [place] Body Weight 120 LB (54.55 kg) % [place] Body Weight 142 Body Mass Index (BMI) 29.2 Weight Status Overweight GI Symptoms Last BM 12/21 x1 Skin Integrity/Comment: Skin: Venous Insufficiency Ulcer on Rt umanzor Wan: 22 Pt is adequately meeting estimated nutritional needs to support wound healing, adding Dave BID instead to provide amino acids and vitamins without extra calories. Estimated Nutritional Goals BEE in Kcals: Adj wt of IBW Calories/Kcals/Kg 25-30 Kcals Calculated 7063-8667 Protein: Adj wt of IBW Protein g/k.0-1.2 Protein Calculated 60-70 Fluid: ml 6720-5085 ml (25-30 ml/kg) Nutritional Problem 1. Problem Problem Increased vitamin and mineral needs Etiology r/t wound healing Signs/Symptoms: aeb venous Insufficiency Ulcer on Rt umanzor. Malnutrition Related to Morbid Obesity Malnutrition related to morbid obesity No Intervention/Recommendation Comments 1.Continue Mechanical Soft, chopped diet as tolerated. 2.Add Dave BID (completed). Expected Outcomes/Goals Expected Outcomes/Goals 1. PO intake to continue to meet >75% of estimated nutritional needs. 2. Monitor PO intake, wt, nutrition related labs, and skin integrity to trend WNL. 3. F/U as low risk in 7-10 days, 12/29-01/01.
--- NOTE | 2020-01-04 22:53 | Psych Progress Note ---
Psych Progress Note - Intro Date of Progress Note: 01/04/20 - Assessment Assessment: patient was visited bedside she is disorganized, loud, talking to unseen others. her speech is mumbled. she gets impulsively angry. not able to cooperate with interview. no plan for self care. staff needs to provide redirection. - Vitals, I&O Vitals: Vital Signs - 24 hr 01/04/20 01/04/20 01/04/20 06:04 15:51 20:25 Temp 98.1 F 98.1 F 99.2 F HR 66 63 92 RR 18 18 20 BP 122/52 123/62 127/66 O2 Sat % 92 99 97 - Objective Psych General Appearance: Report: Casually dressed Psych Behavior: Report: Uncooperative, Restless Psych Speech: Report: Mumbled, Loud Psych Mood: Report: Angry Psych Affect: Report: Labile Psych Thought Process: Report: Paranoid, Loose Associations Psych Cognition: Report: Confused Psych Insight: Report: Impaired Psych Judgement: Report: Impaired - Plan Plan: cont meds, encouraged groups - Review of Relevant Data Review of Relevant Data: I have reviewed the following items and time jessica (where applicable) has been applied. - Medications Current Medications: Current Medications Acetaminophen (Tylenol) 650 mg PO Q4H PRN PRN Reason: Pain (Mild 1-3) Stop: 02/18/20 22:33 [place] Oil/[place] Balsam/Trypsin (Venelex) 1 appl TP DAILY BUTCH Stop: 02/22/20 08:59 Last Admin: 01/04/20 09:18 Dose: 1 appl Cholecalciferol (Vitamin D3) 2,000 iu PO DAILY BUTCH Stop: 02/19/20 08:59 Last Admin: 01/04/20 09:18 Dose: 2,000 iu Clonazepam (Klonopin) 1 mg PO BID BUTCH; Protocol Stop: 02/25/20 08:59 Last Admin: 01/04/20 17:32 Dose: 1 mg Lorazepam (Ativan) 0.5 mg PO Q4HR PRN; Protocol PRN Reason: Agitation Stop: 01/19/20 22:33 Last Admin: 12/29/19 01:18 Dose: 0.5 mg Magnesium Hydroxide (Milk Of Magnesia) 30 ml PO HS PRN PRN Reason: Constipation Stop: 02/18/20 22:42 Last Admin: 12/31/19 20:29 Dose: 30 ml Multivitamins/Vitamin C (Theragran) 1 tab PO DAILY BUTCH Stop: 02/19/20 08:59 Last Admin: 01/04/20 09:18 Dose: 1 tab Quetiapine Fumarate 100 mg/ (Quetiapine Fumarate 50 mg) 150 mg PO BID BUTCH Stop: 02/23/20 09:59 Last Admin: 01/04/20 17:33 Dose: 150 mg Quetiapine Fumarate 200 mg/ (Quetiapine Fumarate 50 mg) 250 mg PO HS BUTCH Stop: 02/23/20 20:59 Last Admin: 01/04/20 20:40 Dose: 250 mg Temazepam (Restoril) 30 mg PO HS PRN; Protocol PRN Reason: Insomnia Stop: 02/18/20 23:57 Last Admin: 01/03/20 21:00 Dose: 30 mg Trazodone HCl (Desyrel) 75 mg PO HS BUTCH; Protocol Stop: 02/22/20 20:59 Last Admin: 01/04/20 20:41 Dose: 75 mg Valproate Sodium (Depakene) 500 mg PO BID BUTCH; Protocol Stop: 02/19/20 08:59 Last Admin: 01/04/20 17:33 Dose: 500 mg Zinc Sulfate (Zinc Sulfate) 220 mg PO BID BUTCH Stop: 02/19/20 08:59 Last Admin: 01/04/20 17:33 Dose: 220 mg
[2020-01-05] MEDS: Multivitamin Tab PO SCH (08:54)
[2020-01-05] MEDS: Venelex 60gm Tube TP SCH (08:54)
--- NOTE | 2020-01-05 13:09 | Internal Medicine Prog Note ---
Internal Medicine Subjective - Subjective Service Date: 01/05/20 Patient seen and examined:: without staff Patient is:: awake, non-interactive Per staff patient has:: no adverse event, no episodes of fall Internal Medicine Objective - Results Recent Labs: Laboratory Last Values POC Glucose 97 MG/DL (70 - 105) 12/20/19 19:25 - Physical Exam Vitals and I&O: Vital Signs Temp 99.2 F 01/04/20 20:25 Pulse 92 01/04/20 20:25 Resp 16 01/05/20 08:00 BP 127/66 01/04/20 20:25 Pulse Ox 97 01/04/20 20:25 Intake & Output 01/04/20 01/05/20 01/05/20 18:59 06:59 18:59 Intake Total 480 Balance 480 Intake: Oral 480 Other: # Voids 1 Stool Characteristics Formed Formed Formed Active Medications: Current Medications Acetaminophen (Tylenol) 650 mg PO Q4H PRN PRN Reason: Pain (Mild 1-3) Stop: 02/18/20 22:33 [place] Oil/[place] Balsam/Trypsin (Venelex) 1 appl TP DAILY BUTCH Stop: 02/22/20 08:59 Last Admin: 01/05/20 08:54 Dose: 1 appl Cholecalciferol (Vitamin D3) 2,000 iu PO DAILY BUTCH Stop: 02/19/20 08:59 Last Admin: 01/05/20 08:54 Dose: 2,000 iu Clonazepam (Klonopin) 1 mg PO BID BUTCH; Protocol Stop: 02/25/20 08:59 Last Admin: 01/05/20 08:54 Dose: 1 mg Lorazepam (Ativan) 0.5 mg PO Q4HR PRN; Protocol PRN Reason: Agitation Stop: 01/19/20 22:33 Last Admin: 12/29/19 01:18 Dose: 0.5 mg Magnesium Hydroxide (Milk Of Magnesia) 30 ml PO HS PRN PRN Reason: Constipation Stop: 02/18/20 22:42 Last Admin: 12/31/19 20:29 Dose: 30 ml Multivitamins/Vitamin C (Theragran) 1 tab PO DAILY BUTCH Stop: 02/19/20 08:59 Last Admin: 01/05/20 08:54 Dose: 1 tab Quetiapine Fumarate 100 mg/ (Quetiapine Fumarate 50 mg) 150 mg PO BID [facility] Stop: 02/23/20 09:59 Last Admin: 01/05/20 08:55 Dose: 150 mg Quetiapine Fumarate 200 mg/ (Quetiapine Fumarate 50 mg) 250 mg PO HS BUTCH Stop: 02/23/20 20:59 Last Admin: 01/04/20 20:40 Dose: 250 mg Temazepam (Restoril) 30 mg PO HS PRN; Protocol PRN Reason: Insomnia Stop: 02/18/20 23:57 Last Admin: 01/03/20 21:00 Dose: 30 mg Trazodone HCl (Desyrel) 75 mg PO HS BUTCH; Protocol Stop: 02/22/20 20:59 Last Admin: 01/04/20 20:41 Dose: 75 mg Valproate Sodium (Depakene) 500 mg PO BID BUTCH; Protocol Stop: 02/19/20 08:59 Last Admin: 01/05/20 08:54 Dose: 500 mg Zinc Sulfate (Zinc Sulfate) 220 mg PO BID BUTCH Stop: 02/19/20 08:59 Last Admin: 01/05/20 08:55 Dose: 220 mg General: lethargic HEENT: NC/AT Neck: Supple Lungs: CTAB Cardiovascular: RRR, Normal S1, Normal S2 Abdomen: soft, non-tender Extremities: clear Neurological: no change Internal Medicine Assmt/Plan - Assessment Assessment: 1. Right leg cellulitis 2. schizohaffective disorder 3. Acute psychosis d/w r.n. - Plan Plan: continue monitoring of leg Discharge was not held by me. Apparently COVID test was placed on name without my notice. Maybe custodial is requesting COVID test to acceptance. home health care case manager can follow-up D/w R.N. Nutritional Asmnt/Malnutr-PDOC - Dietary Evaluation Malnutrition Findings (Please click <Entered> for more info): Nutritional Asmnt/Malnutrition Start: 12/23/19 12: 43 Text: Status: Complete Freq: Protocol: Document 12/23/19 12:44 MONICA (Rec: 12/23/19 12:49 MONICA [email or web address]) Nutritional Asmnt/Malnutrition Patient General Information Nutritional Screening Low Risk Diagnosis Psychosis Pertinent Medical Hx/Surgical Hx RT leg cellulitis secondary to Morganella and MSSA, RT lower extremity with non-healing ulcer, schizoaffective disorder, manic episode, severe, with psychotic features, UTI Subjective Information Pt is a 54-year-old male admitted on 12/19 d/t depression and anxiety. Pt is eating an estimated 90% of meals Per Meal/Nutrition Activity Record. Dietary is currently providing an estimated 3000 kcals and 140 gm Pro, per Pt PO intake this is providing an estimated 2700 kcals and 125gm Pro to meet 100+% kcal and 100+% Pro needs . As pt is eating 75-100% meals since admit date, discontinuing Glucerna TID which was ordered by nurse over the weekend d/t pt having it while being medically cleared at [facility]. Pt is adequately meeting estimated nutritional needs to support wound healing, adding Dave BID instead to provide amino acids and vitamins without extra calories. Anthropometrics HT: 54 WT: 170 LB (77.27 kg) ABW: 132 LB (60 kg) BMI: 29.20 (Overweight) GI/ Skin Integrity GI: WNL, Soft BM: 12/21 x1 I/O: 1260/Not Noted Skin: Venous Insufficiency Ulcer on Rt umanzor Wan: 22 Diet Order: Mechanical Soft, chopped Estimated Energy Needs: (Wound Healing, ABW) 3467-6166 kcals (25-30 kcals/ kg) 60-70g Pro (1.0-1.2 g/kg) 8838-2477 ml (25-30 ml/kg) Current Diet Order/ Nutrition Support Mechanical Soft, chopped Pertinent Medications Vitamin D3, MOM (PRN), Theragran, Zinc Sulfate Pertinent Labs 12/19: POC Glucose: 97 12/10: BUN/Cr 22/0.72, GFR 88, Glucose 103 Nutritional Hx/Data Height 1.63 m Height (Calculated Centimeters) 162.6 Current Weight (lbs) 77.111 kg Weight (Calculated Kilograms) 77.1 Weight (Calculated Grams) 22004.7 [place] Body Weight 120 LB (54.55 kg) % [place] Body Weight 142 Body Mass Index (BMI) 29.2 Weight Status Overweight GI Symptoms Last BM 12/21 x1 Skin Integrity/Comment: Skin: Venous Insufficiency Ulcer on Rt umanzor Wan: 22 Pt is adequately meeting estimated nutritional needs to support wound healing, adding Dave BID instead to provide amino acids and vitamins without extra calories. Estimated Nutritional Goals BEE in Kcals: Adj wt of IBW Calories/Kcals/Kg 25-30 Kcals Calculated 8434-5503 Protein: Adj wt of IBW Protein g/k.0-1.2 Protein Calculated 60-70 Fluid: ml 6285-2783 ml (25-30 ml/kg) Nutritional Problem 1. Problem Problem Increased vitamin and mineral needs Etiology r/t wound healing Signs/Symptoms: aeb venous Insufficiency Ulcer on Rt umanzor. Malnutrition Related to Morbid Obesity Malnutrition related to morbid obesity No Intervention/Recommendation Comments 1.Continue Mechanical Soft, chopped diet as tolerated. 2.Add Dave BID (completed). Expected Outcomes/Goals Expected Outcomes/Goals 1. PO intake to continue to meet >75% of estimated nutritional needs. 2. Monitor PO intake, wt, nutrition related labs, and skin integrity to trend WNL. 3. F/U as low risk in 7-10 days, 12/29-01/01.
--- NOTE | 2020-01-05 22:34 | Psych Progress Note ---
Psych Progress Note - Intro Date of Progress Note: 01/05/20 - Assessment Assessment: patient was visited bedside she is disorganized, loud, talking to unseen others. her speech is mumbled. she gets impulsively angry. not able to cooperate with interview. no plan for self care. staff needs to provide redirection. less agitation and hostility overall. - Vitals, I&O Vitals: Vital Signs - 24 hr 01/05/20 01/05/20 01/05/20 08:00 14:00 20:36 Temp 97.6 F 98.6 F HR 95 100 RR 16 18 19 BP 107/65 139/77 O2 Sat % 100 97 - Objective Psych General Appearance: Report: Casually dressed Psych Behavior: Report: Uncooperative, Restless Psych Speech: Report: Mumbled, Loud Psych Mood: Report: Angry Psych Affect: Report: Labile Psych Thought Process: Report: Paranoid, Loose Associations Psych Cognition: Report: Confused Psych Insight: Report: Impaired Psych Judgement: Report: Impaired - Plan Plan: cont meds, encouraged groups - Review of Relevant Data Review of Relevant Data: I have reviewed the following items and time jessica (where applicable) has been applied. - Medications Current Medications: Current Medications Acetaminophen (Tylenol) 650 mg PO Q4H PRN PRN Reason: Pain (Mild 1-3) Stop: 02/18/20 22:33 Sebastian Oil/Tristanian Balsam/Trypsin (Venelex) 1 appl TP DAILY BUTCH Stop: 02/22/20 08:59 Last Admin: 01/05/20 08:54 Dose: 1 appl Cholecalciferol (Vitamin D3) 2,000 iu PO DAILY BUTCH Stop: 02/19/20 08:59 Last Admin: 01/05/20 08:54 Dose: 2,000 iu Clonazepam (Klonopin) 1 mg PO BID BUTCH; Protocol Stop: 02/25/20 08:59 Last Admin: 01/05/20 16:49 Dose: 1 mg Lorazepam (Ativan) 0.5 mg PO Q4HR PRN; Protocol PRN Reason: Agitation Stop: 01/19/20 22:33 Last Admin: 01/05/20 19:43 Dose: 0.5 mg Magnesium Hydroxide (Milk Of Magnesia) 30 ml PO HS PRN PRN Reason: Constipation Stop: 02/18/20 22:42 Last Admin: 12/31/19 20:29 Dose: 30 ml Multivitamins/Vitamin C (Theragran) 1 tab PO DAILY BUTCH Stop: 02/19/20 08:59 Last Admin: 01/05/20 08:54 Dose: 1 tab Quetiapine Fumarate 100 mg/ (Quetiapine Fumarate 50 mg) 150 mg PO BID BUTCH Stop: 02/23/20 09:59 Last Admin: 01/05/20 16:49 Dose: 150 mg Quetiapine Fumarate 200 mg/ (Quetiapine Fumarate 50 mg) 250 mg PO HS BUTCH Stop: 02/23/20 20:59 Last Admin: 01/05/20 20:31 Dose: 250 mg Temazepam (Restoril) 30 mg PO HS PRN; Protocol PRN Reason: Insomnia Stop: 02/18/20 23:57 Last Admin: 01/03/20 21:00 Dose: 30 mg Trazodone HCl (Desyrel) 75 mg PO HS BUTCH; Protocol Stop: 02/22/20 20:59 Last Admin: 01/05/20 20:30 Dose: 75 mg Valproate Sodium (Depakene) 500 mg PO BID BUTCH; Protocol Stop: 02/19/20 08:59 Last Admin: 01/05/20 16:49 Dose: 500 mg Zinc Sulfate (Zinc Sulfate) 220 mg PO BID BUTCH Stop: 02/19/20 08:59 Last Admin: 01/05/20 16:50 Dose: 220 mg
[2020-01-06] MEDS: Multivitamin Tab PO SCH (08:45)
[2020-01-06] MEDS: Venelex 60gm Tube TP SCH (09:13)
--- NOTE | 2020-01-06 22:44 | Progress Notes ---
DATE: SUBJECTIVE: Chart reviewed and the patient interviewed. Also discussed the patient's condition with the staff and reviewed records and labs. The patient's affect is brighter. The patient is less irritable and less agitated. She is interacting more with peers and with others. The patient also accepted to go to [facility]. We will try to discharge the patient today if she will be accepted there. Gait is steady. Vital signs are stable. No new labs available for review. MENTAL STATUS EXAMINATION: Calm. Cooperative. Motivated for treatment and denies any thoughts of suicide or homicide. ASSESSMENT: The patient is not suicidal or homicidal. TREATMENT PLAN: Planning to discharge the patient to [facility] and follow up there. [facility]# [id number]
== END 2020-01-06 15:00 | DRG 885 ==
LOC: GERO 18:47
PROVIDERS: ADMIT Psychiatry & Neurology Psychiatry; ATTEND Psychiatry & Neurology Psychiatry
DX: F25.0 Schizoaffective disorder, bipolar type (principal); L03.115 Cellulitis of right lower limb; L97.919 Non-pressure chronic ulcer of unspecified part of right lower leg with unspecified severity; F23 Brief psychotic disorder; F32.9 Major depressive disorder, single episode, unspecified
CPT/HCPCS: 82948-90; 83036-90; G0410; Z7610